=== PATIENT | female | born 2000 | race Caucasian/White ===

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

== ENCOUNTER 2018-06-27 14:26 | Emergency (ER) | payer MEDICAID ==
[2018-06-27 14:55] VITALS: BP 118/67
--- NOTE | 2018-06-27 15:19 | EDM.PDOC ---
ED HPI GENERAL MEDICAL PROBLEM - General Chief Complaint: Gastrointestinal Problem Stated Complaint: FOOD POISONING Time Seen by Provider: 06/27/18 15:06 Source of Information: Reports: Patient History Limitations: Reports: No Limitations - History of Present Illness INITIAL COMMENTS - FREE TEXT/NARRATIVE: This lady thinks maybe she got some food poisoning. She ate some pizza at about 1 PM today and within an hour or so she felt nauseated and had some diarrhea. She has not vomited but feels like she might. She denies abdominal pain. Is no fever no body aches - Related Data Allergies Allergy/AdvReac Type Severity Reaction Status Date / Time Penicillins Allergy Hives Verified 06/27/18 14:42 Home Meds: Home Meds Lurasidone HCl [Latuda] 40 mg PO DAILY 12/24/17 [History] traZODone HCl [Trazodone HCl] 50 mg PO BEDTIME 12/24/17 [History] Past Medical History HEENT History: Reports: None Neurological History: Reports: Concussion Psychiatric History: Reports: Anxiety, Depression, Other (See Below) Other Psychiatric History: manic depressive - Infectious Disease History Infectious Disease History: Reports: Chicken Pox - Past Surgical History Head Surgeries/Procedures: Reports: None HEENT Surgical History: Reports: Myringotomy w Tube(s) Neurological Surgical History: Reports: None Dermatological Surgical History: Reports: None Social & Family History - Tobacco Use Smoking Status *Q: Current Every Day Smoker Years of Tobacco use: 3 Packs/Tins Daily: 0.5 Used Tobacco, but Quit: No Second Hand Smoke Exposure: Yes - Caffeine Use Caffeine Use: Reports: Coffee, Soda - Recreational Drug Use Recreational Drug Use: No ED ROS GENERAL - Review of Systems Review Of Systems: See Below Constitutional: Reports: No Symptoms HEENT: Reports: No Symptoms Respiratory: Reports: No Symptoms Cardiovascular: Reports: No Symptoms Endocrine: Reports: No Symptoms GI/Abdominal: Reports: Diarrhea, Nausea : Reports: No Symptoms ED EXAM, GI/ABD - Physical Exam Exam: See Below Exam Limited By: No Limitations General Appearance: Alert, No Apparent Distress, Obese Eyes: Bilateral: Normal Appearance Throat/Mouth: Normal Inspection Head: Atraumatic Neck: Normal Inspection Respiratory/Chest: No Respiratory Distress Cardiovascular: Regular Rate, Rhythm GI/Abdominal Exam: Normal Bowel Sounds, Soft, Non-Tender Course - Vital Signs Last Recorded V/S: Last Vital Signs Temp 35.4 C 06/27/18 14:44 Pulse 75 06/27/18 14:44 Resp 13 06/27/18 14:44 BP 118/67 06/27/18 14:44 Pulse Ox 94 L 06/27/18 14:44 Departure - Departure Time of Disposition: 15:17 Disposition: Home, Self-Care 01 Condition: Fair Clinical Impression: Food poisoning - Discharge Information Referrals: PCP,None [Primary Care Provider] - Additional Instructions: If needed for nausea use Zofran (ondansetron) 4 mg under your tongue every 6-8 hours. If you continue to have diarrhea you can try some Imodium AD which is available [id number]. Follow package instructions. I recommend a clear liquid diet for the rest of the day. He should be back to normal tomorrow
== END 2018-06-27 15:23 | disposition home or self-care (01) ==
LOC: JP.ED 14:26
DX: T62.8X1A Toxic effect of other specified noxious substances eaten as food, accidental (unintentional), initial encounter (principal); K52.1 Toxic gastroenteritis and colitis; F17.210 Nicotine dependence, cigarettes, uncomplicated; Z88.0 Allergy status to penicillin; Z79.899 Other long term (current) drug therapy
CPT/HCPCS: 99282

== ENCOUNTER 2019-04-16 21:12 | Inpatient (IN) | payer MEDICAID ==
[2019-04-16] MEDS ORDERED: Sodium Chloride 0.9% 10 ML Syringe FLUSH PRN ×2 (22:12→23:32)
[2019-04-16] MEDS: Lactated Ringers 1,000 ML IV SCH (22:28)
[2019-04-16] MEDS ORDERED: Ondansetron 4 MG/2 ML SDV IV PRN (23:32)
[2019-04-17] MEDS ORDERED: Lactated Ringers 1,000 ML IV ONE (00:08)
[2019-04-17] MEDS ORDERED: Sodium Chloride 0.9% 10 ML Syringe FLUSH PRN (00:08)
[2019-04-17] MEDS ORDERED: Naloxone 0.4 MG/ML SDV IVPUSH PRN (00:08)
[2019-04-17] MEDS ORDERED: ePHEDrine 50 MG/ML SDV IVPUSH PRN ×2 (00:08)
[2019-04-17] MEDS ORDERED: diphenhydrAMINE 50 MG/ML SDV IVPUSH PRN ×2 (00:08)
[2019-04-17] MEDS ORDERED: Ropivacaine 200 MG in Premix Bag 1 BAG EPIDUR SCH (00:15)
--- NOTE | 2019-04-17 00:18 | PCM.LDHP ---
L&D History of Present Illness - General Date of Service: 04/16/19 Admit Problem/Dx: Patient Status Order with Admit Dx/Problem 04/16/19 21:17 Admission Status [Patient Status] [ADT] Routine 04/16/19 23:33 Patient Status [ADT] Routine Admission Diagnosis/Problem Admission Diagnosis/Problem - History of Present Illness Improves with: Reports: None Worsens with: Reports: None Associated Symptoms: Reports: N - Related Data Allergies/Adverse Reactions: Allergies Allergy/AdvReac Type Severity Reaction Status Date / Time Penicillins Allergy Hives Verified 06/27/18 14:42 Home Medications: Home Meds Ondansetron [Zofran ODT] 4 mg SL Q6HR PRN 04/16/19 [History] Pnv No.95/Ferrous Fum/Folic AC [ Vitamin Tablet] 1 tab PO DAILY [History] Past Medical History HEENT History: Reports: None [employer]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 History: Neurological History: Reports: Concussion Psychiatric History: Reports: Anxiety, Depression, Other (See Below) Other Psychiatric History: manic depressive: not on medications Do You Give Correction Boluses or Sliding Scale: No - Infectious Disease History Infectious Disease History: Reports: Chicken Pox - Past Surgical History Head Surgeries/Procedures: Reports: None HEENT Surgical History: Reports: Myringotomy w Tube(s) Neurological Surgical History: Reports: None Dermatological Surgical History: Reports: None Social & Family History - Family History Family Medical History: Noncontributory - Tobacco Use Smoking Status *Q: Current Every Day Smoker Years of Tobacco use: 5 Packs/Tins Daily: 0.5 - Caffeine Use Caffeine Use: Reports: Soda - Recreational Drug Use Recreational Drug Use: No H&P Review of Systems - Review of Systems: Review Of Systems: See Below General: Reports: No Symptoms HEENT: Reports: Headaches Pulmonary: Reports: No Symptoms Cardiovascular: Reports: No Symptoms Gastrointestinal: Reports: Abdominal Pain, Anorexia, Nausea, Vomiting Genitourinary: Reports: No Symptoms Musculoskeletal: Reports: No Symptoms Skin: Reports: No Symptoms Psychiatric: Reports: No Symptoms Neurological: Reports: Headache Hematologic/Lymphatic: Reports: No Symptoms Immunologic: Reports: No Symptoms L&D Exam - Exam Exam: See Below - Vital Signs Vital Signs: Last Vital Signs Temp 36.6 C 04/16/19 21:20 Pulse 112 H 04/16/19 21:20 Resp 20 04/16/19 21:20 BP 153/81 H 04/16/19 21:20 Pulse Ox 97 04/16/19 21:20 Weight: 94.347 kg - OB Specific Contraction Duration (sec): 50-70 Contraction Frequency (min): 2-3 Contraction Intensity: Mild to Moderate Movement: Active Heart Tones: Present Heart Rate (FHR) Variability: Moderate (6-25 bmp) Presentation: Vertex - Figueroa Score Figueroa Score Cervix Position: Anterior Figueroa Score Consistency: Soft Figueroa Score Effacement: >80% Figueroa Score Dilation: 1-2 cm Figueroa Score Infant's Station: -1 ,0 Figueroa Score Total: 10 - Exam General: Alert, Oriented, Cooperative HEENT: PERRLA, Conjunctiva Clear, EACs Clear, EOMI, Hearing Intact, Mucosa Moist & [place], Nares Patent, Normal Nasal Septum, Posterior Pharynx Clear, Pupils Equal, Pupils Reactive, TMs Clear Neck: Supple, Trachea Midline Lungs: Clear to Auscultation, Normal Respiratory Effort Cardiovascular: Regular Rate, Regular Rhythm GI/Abdominal Exam: Normal Bowel Sounds, Soft, Non-Tender, No Organomegaly, No Distention, No Abnormal Bruit, No Mass, Pelvis Stable Rectal Exam: Normal Exam, Normal Rectal Tone Genitourinary: Normal external exam, Normal bimanual exam, Normal speculum exam , Cervical dilitation, Vaginal discharge Back Exam: Normal Inspection, Full Range of Motion Extremities: Normal Inspection, Normal Range of Motion, Non-Tender, No Pedal Edema, Normal Capillary Refill, Pedal Edema Skin: Warm, Dry, Intact Neurological: Cranial Nerves Intact, Hyperreflexia DTR: 2+: Patella (R), 3+: Patella (L) Psychiatric: Alert, Normal Affect, Normal Mood, Anxious - Patient Data Lab Results Last 24 hrs: Laboratory Results - last 24 hr 04/16/19 04/16/19 04/16/19 Range/Units 21:47 21:47 22:25 WBC 12.7 H (4.5-11.0) K/uL RBC 4.09 (3.30-5.50) M/uL Hgb 11.0 L D (12.0-15.0) g/dL Hct 35.2 L (36.0-48.0) % MCV 86 (80-98) fL MCH 27 (27-31) pg MCHC 31 L (32-36) % Plt Count 283 (150-400) K/uL Neut % (Auto) 85 H (36-66) % Lymph % (Auto) 8 L (24-44) % Simpson % (Auto) 6 (2-6) % Eos % (Auto) 0 L (2-4) % Baso % (Auto) 0 (0-1) % Sodium (140-148) mmol/L Potassium (3.6-5.2) mmol/L Chloride (100-108) mmol/L Carbon Dioxide (21-32) mmol/L Anion Gap (5.0-14.0) mmol/L BUN (7-18) mg/dL Creatinine (0.6-1.0) mg/dL Est Cr Clr Drug Dosing Estimated GFR (MDRD) (>60) Glucose (74-106) mg/dL Calcium (8.5-10.1) mg/dL Total Bilirubin (0.2-1.0) mg/dL AST (15-37) U/L ALT (12-78) U/L Alkaline Phosphatase (46-116) U/L Lactate Dehydrogenase (82-234) U/L Total Protein (6.4-8.2) g/dL Albumin (3.4-5.0) g/dL Globulin (2.3-3.5) g/dL Albumin/Globulin Ratio (1.2-2.2) Urine Color [place] A (YELLOW) Urine Appearance Slightly cloudy A (CLEAR) Urine pH 7.0 (5.0-8.0) Ur Specific [place] 1.025 (1.008-1.030) Urine Protein 30 H (NEGATIVE) mg/dL Urine Glucose (UA) Negative (NEGATIVE) mg/dL Urine Ketones 40 H (NEGATIVE) mg/dL Urine Occult Blood Negative (NEGATIVE) Urine Nitrite Negative (NEGATIVE) Urine Bilirubin Negative (NEGATIVE) Urine Urobilinogen 1.0 (0.2-1.0) EU/dL Ur Leukocyte Esterase Small H (NEGATIVE) Urine RBC 0-5 (0-5) Urine WBC 10-20 H (0-5) Ur Epithelial Cells Many Amorphous Sediment Few Urine Bacteria Not seen Urine Mucus Rare Ur Random Creatinine (20.0-370.0) mg/dL U Random Total Protein (6.0-11.9) mg/dL Protein/Creatinin Ratio (21.0-161.0) mg/g Urine Opiates Screen Negative (NEGATIVE) Ur Oxycodone Screen Negative (NEGATIVE) Urine Methadone Screen Negative (NEGATIVE) Ur Propoxyphene Screen Negative (NEGATIVE) Ur Barbiturates Screen Negative (NEGATIVE) Ur Tricyclics Screen Negative (NEGATIVE) Ur Phencyclidine Scrn Negative (NEGATIVE) Ur Amphetamine Screen Negative (NEGATIVE) U Methamphetamines Scrn Negative (NEGATIVE) Urine MDMA Screen Negative (NEGATIVE) U Benzodiazepines Scrn Negative (NEGATIVE) U Cocaine Metab Screen Negative (NEGATIVE) U Marijuana (THC) Screen Negative (NEGATIVE) 04/16/19 04/16/19 04/16/19 Range/Units 22:25 22:25 22:36 WBC (4.5-11.0) K/uL RBC (3.30-5.50) M/uL Hgb (12.0-15.0) g/dL Hct (36.0-48.0) % MCV (80-98) fL MCH (27-31) pg MCHC (32-36) % Plt Count (150-400) K/uL Neut % (Auto) (36-66) % Lymph % (Auto) (24-44) % Simpson % (Auto) (2-6) % Eos % (Auto) (2-4) % Baso % (Auto) (0-1) % Sodium 138 L (140-148) mmol/L Potassium 3.7 (3.6-5.2) mmol/L Chloride 104 (100-108) mmol/L Carbon Dioxide 22 (21-32) mmol/L Anion Gap 15.7 H (5.0-14.0) mmol/L BUN 5 L (7-18) mg/dL Creatinine 0.6 (0.6-1.0) mg/dL Est Cr Clr Drug Dosing TNP Estimated GFR (MDRD) > 60 (>60) Glucose 82 (74-106) mg/dL Calcium 8.4 L (8.5-10.1) mg/dL Total Bilirubin 0.3 (0.2-1.0) mg/dL AST 21 (15-37) U/L ALT 20 (12-78) U/L Alkaline Phosphatase 141 H (46-116) U/L Lactate Dehydrogenase 209 (82-234) U/L Total Protein 6.6 (6.4-8.2) g/dL Albumin 2.4 L (3.4-5.0) g/dL Globulin 4.2 H (2.3-3.5) g/dL Albumin/Globulin Ratio 0.6 L (1.2-2.2) Urine Color (YELLOW) Urine Appearance (CLEAR) Urine pH (5.0-8.0) Ur Specific [place] (1.008-1.030) Urine Protein (NEGATIVE) mg/dL Urine Glucose (UA) (NEGATIVE) mg/dL Urine Ketones (NEGATIVE) mg/dL Urine Occult Blood (NEGATIVE) Urine Nitrite (NEGATIVE) Urine Bilirubin (NEGATIVE) Urine Urobilinogen (0.2-1.0) EU/dL Ur Leukocyte Esterase (NEGATIVE) Urine RBC (0-5) Urine WBC (0-5) Ur Epithelial Cells Amorphous Sediment Urine Bacteria Urine Mucus Ur Random Creatinine 120.1 (20.0-370.0) mg/dL U Random Total Protein 41.4 H (6.0-11.9) mg/dL Protein/Creatinin Ratio 344.7 H (21.0-161.0) mg/g Urine Opiates Screen (NEGATIVE) Ur Oxycodone Screen (NEGATIVE) Urine Methadone Screen (NEGATIVE) Ur Propoxyphene Screen (NEGATIVE) Ur Barbiturates Screen (NEGATIVE) Ur Tricyclics Screen (NEGATIVE) Ur Phencyclidine Scrn (NEGATIVE) Ur Amphetamine Screen (NEGATIVE) U Methamphetamines Scrn (NEGATIVE) Urine MDMA Screen (NEGATIVE) U Benzodiazepines Scrn (NEGATIVE) U Cocaine Metab Screen (NEGATIVE) U Marijuana (THC) Screen (NEGATIVE) Result Diagrams: 04/16/19 22:25 04/16/19 22:25 - Problem List (1) GBS (group B streptococcus) infection SNOMED Code(s): 996666061 ICD Code: A49.1 - STREPTOCOCCAL INFECTION, UNSPECIFIED SITE Status: Acute Current Visit: Yes (2) Bacterial vaginosis SNOMED Code(s): 120613133 ICD Code: N76.0 - ACUTE VAGINITIS; B96.89 - OTH BACTERIAL AGENTS THE CAUSE OF DISEASES CLASSD [id number] Status: Acute Current Visit: Yes (3) Insufficient care in third trimester SNOMED Code(s): 8038063854667, 6169797697524 ICD Code: O09.33 - SUPRVSN OF PREG W INSUFFICIENT ANTENAT CARE, THIRD TRIMESTER Status: Acute Current Visit: Yes (4) Protein in urine SNOMED Code(s): 83120277 ICD Code: R80.9 - PROTEINURIA, UNSPECIFIED Status: Acute Current Visit: Yes Qualifiers: Trimester: third trimester (5) Pre-eclampsia in third trimester SNOMED Code(s): 858077689, 686837386 ICD Code: O14.93 - UNSPECIFIED PRE-ECLAMPSIA, THIRD TRIMESTER Status: Acute Current Visit: Yes (6) SNOMED Code(s): 66984872 ICD Code: Z34.90 - ENCNTR FOR SUPRVSN OF NORMAL , UNSP, UNSP TRIMESTER Status: Acute Current Visit: Yes Qualifiers: Weeks of gestation: 37 weeks Qualified Code(s): Z3A.37 - 37 weeks gestation of Problem List Initiated/Reviewed/Updated: Yes Orders Last 24hrs: Active Orders 24 hr Category Date Time Status Admission Status [Patient Status] [ADT] Routine ADT 04/16/19 21:17 Active Patient Status [ADT] Routine ADT 04/16/19 23:33 Active Ambulate [RC] PER UNIT ROUTINE Care 04/16/19 23:32 Active Communication Order [RC] ASDIRECTED Care 04/16/19 23:33 Active Communication Order [RC] ASDIRECTED Care 04/17/19 00:08 Ordered Communication Order [RC] ROUTINE Care 04/17/19 00:08 Ordered Communication Order [RC] ROUTINE Care 04/17/19 00:08 Ordered Communication Order [RC] ROUTINE Care 04/17/19 00:08 Ordered Heart Tones [RC] PER UNIT ROUTINE Care 04/16/19 23:33 Active Non Stress Test [RC] Click to Edit Care 04/16/19 23:33 Active Insert Urinary Catheter [OM.PC] ASDIRECTED Care 04/17/19 00:15 Ordered Local Anesthetic Infusion Pump [RC] ASDIRECTED Care 04/17/19 00:08 Ordered Notify Provider Vital Signs [RC] PRN Care 04/16/19 23:32 Active Notify Provider [RC] PRN Care 04/16/19 23:33 Active Oxygen Therapy [RC] ASDIRECTED Care 04/17/19 00:08 Ordered PCEA Epidural [RC] ASDIRECTED Care 04/17/19 00:08 Ordered PCEA Epidural [RC] ASDIRECTED Care 04/17/19 00:08 Ordered PCEA Epidural [RC] ASDIRECTED Care 04/17/19 00:09 Ordered Peripheral IV Care [RC] . DIRECTED Care 04/17/19 00:09 Ordered Pulse Oximetry [RC] ASDIRECTED Care 04/17/19 00:08 Ordered Up ad [place] [RC] ASDIRECTED Care 04/16/19 23:32 Active Urinary Catheter Assessment [RC] ASDIRECTED Care 04/17/19 00:09 Ordered VTE/DVT Education [RC] Click to Edit Care 04/16/19 23:37 Active Vital Signs [RC] PER UNIT ROUTINE Care 04/16/19 23:33 Active Vital Signs [RC] PER UNIT ROUTINE Care 04/17/19 00:08 Ordered BPP w NST [US] Routine Exams 04/16/19 23:39 Ordered Clindamycin Phosphate [Cleocin] 900 mg Med 04/17/19 00:00 Active Sodium Chloride 0.9% [Normal Saline] 100 ml IV Q8H Lactated Ringers [Ringers, Lactated] 1,000 ml Med 04/17/19 00:08 Ordered IV .BOLUS Lactated Ringers [Ringers, Lactated] 1,000 ml Med 04/16/19 22:15 Active IV ASDIRECTED Naloxone [Narcan] Med 04/17/19 00:08 Ordered 0.1 mg IVPUSH ASDIRECTED PRN Ondansetron [Zofran] Med 04/16/19 23:32 Active 4 mg IV Q4H PRN Ropivacaine [Naropin 0.2%] 200 mg Med 04/17/19 00:15 Ordered Premix Bag 1 bag EPIDUR ASDIRECTED Sodium Chloride 0.9% [Saline Flush] Med 04/16/19 22:12 Active 10 ml FLUSH ASDIRECTED PRN Sodium Chloride 0.9% [Saline Flush] Med 04/16/19 23:32 Active 10 ml FLUSH ASDIRECTED PRN Sodium Chloride 0.9% [Saline Flush] Med 04/17/19 00:08 Ordered 10 ml FLUSH ASDIRECTED PRN diphenhydrAMINE [Benadryl] Med 04/17/19 00:08 Ordered 25 mg IVPUSH Q6H PRN diphenhydrAMINE [Benadryl] Med 04/17/19 00:08 Ordered 50 mg IVPUSH Q6H PRN ePHEDrine [ePHEDrine sulfate] Med 04/17/19 00:08 Ordered 10 mg IVPUSH ASDIRECTED PRN ePHEDrine [ePHEDrine sulfate] Med 04/17/19 00:08 Ordered 10 mg IVPUSH ASDIRECTED PRN metroNIDAZOLE/Normal Saline [Flagyl 500 MG in NS 100 ML Med 04/17/19 00:15 Ordered ] 500 mg Premix Bag 1 bag IV Q8H DVT/VTE Prophylaxis Reflex [OM.PC] Routine Oth 04/16/19 23:32 Ordered Epidural Catheter Management [OM.PC] Routine Oth 04/17/19 00:08 Ordered Epidural Catheter Management [OM.PC] Urgent Oth 04/17/19 00:08 Ordered Peripheral IV Insertion Pediatric [OM.PC] Routine Oth 04/17/19 00:08 Ordered Saline Lock Insert [OM.PC] Routine Oth 04/16/19 22:12 Ordered Saline Lock Insert [OM.PC] Routine Oth 04/16/19 23:33 Ordered Resuscitation Status Routine Resus Stat 04/16/19 23:32 Ordered Medication Orders Diphenhydramine HCl (Benadryl) 25 mg IVPUSH Q6H PRN PRN Reason: Itching Diphenhydramine HCl (Benadryl) 50 mg IVPUSH Q6H PRN PRN Reason: Itching Ephedrine Sulfate (Ephedrine Sulfate) 10 mg IVPUSH ASDIRECTED PRN PRN Reason: Hypotension Ephedrine Sulfate (Ephedrine Sulfate) 10 mg IVPUSH ASDIRECTED PRN PRN Reason: Hypotension Lactated Ringer's (Ringers, Lactated) 1,000 mls @ 150 mls/hr IV ASDIRECTED JABARI Last Admin: 04/16/19 22:28 Dose: 150 mls/hr Clindamycin Phosphate 900 mg/ (Sodium Chloride) 106 mls @ 200 mls/hr IV Q8H JABARI Metronidazole 500 mg/ Premix 100 mls @ 100 mls/hr IV Q8H JABARI Lactated Ringer's (Ringers, Lactated) 1,000 mls @ 999 mls/hr IV .BOLUS ONE Stop: 04/17/19 01:08 Ropivacaine 200 mg/ Premix 100 mls @ 0 mls/hr EPIDUR ASDIRECTED JABARI Naloxone HCl (Narcan) 0.1 mg IVPUSH ASDIRECTED PRN PRN Reason: Oversedation Ondansetron HCl (Zofran) 4 mg IV Q4H PRN PRN Reason: Nausea/Vomiting Sodium Chloride (Saline Flush) 10 ml FLUSH ASDIRECTED PRN PRN Reason: Keep Vein Open Sodium Chloride (Saline Flush) 10 ml FLUSH ASDIRECTED PRN PRN Reason: Keep Vein Open Sodium Chloride (Saline Flush) 10 ml FLUSH ASDIRECTED PRN PRN Reason: Keep Vein Open Assessment/Plan Comment:: 04/16/2019 Patient came in tonight with abdominal pain, headache, back pain, vomiting, and nausea. On admission her BP was 150's over 90's, she was found to be danielle every 1-2.5 minutes, SVE-1/70/-1, She states she has had some care. She is a at 37 1/7 gestational weeks FHTs category one Insufficient care Preeclampsia with proteinuria and symptoms Bacterial vaginosis Unknown GBS status Plan- Will get CBC, CMP, LDH, Protein/creatinine ratior Will monitor labor Will monitor FHTs Will plan if preeclampsia to augment labor Plan and anticipate a vaginal
[2019-04-17] MEDS: Clindamycin Phosphate 900 MG in Sodium Chloride 0.9% 100 ML IV SCH ×4 (00:22→23:56)
--- NOTE | 2019-04-17 00:24 | PCM.PNLD ---
Labor Progress Note - VS & Meds Vital Signs: Last Vital Signs Temp 36.6 C 04/16/19 21:20 Pulse 112 H 04/16/19 21:20 Resp 20 04/16/19 21:20 BP 153/81 H 04/16/19 21:20 Pulse Ox 97 04/16/19 21:20 Active Medications: Current Medications Diphenhydramine HCl (Benadryl) 25 mg IVPUSH Q6H PRN PRN Reason: Itching Diphenhydramine HCl (Benadryl) 50 mg IVPUSH Q6H PRN PRN Reason: Itching Ephedrine Sulfate (Ephedrine Sulfate) 10 mg IVPUSH ASDIRECTED PRN PRN Reason: Hypotension Ephedrine Sulfate (Ephedrine Sulfate) 10 mg IVPUSH ASDIRECTED PRN PRN Reason: Hypotension Lactated Ringer's (Ringers, Lactated) 1,000 mls @ 150 mls/hr IV ASDIRECTED JABARI Last Admin: 04/16/19 22:28 Dose: 150 mls/hr Clindamycin Phosphate 900 mg/ (Sodium Chloride) 106 mls @ 200 mls/hr IV Q8H JABARI Metronidazole 500 mg/ Premix 100 mls @ 100 mls/hr IV Q8H JABARI Lactated Ringer's (Ringers, Lactated) 1,000 mls @ 999 mls/hr IV ONETIME ONE Stop: 04/17/19 01:08 Ropivacaine 200 mg/ Premix 100 mls @ 0 mls/hr EPIDUR ASDIRECTED JABARI Naloxone HCl (Narcan) 0.1 mg IVPUSH ASDIRECTED PRN PRN Reason: Oversedation Ondansetron HCl (Zofran) 4 mg IV Q4H PRN PRN Reason: Nausea/Vomiting Sodium Chloride (Saline Flush) 10 ml FLUSH ASDIRECTED PRN PRN Reason: Keep Vein Open Discontinued Medications Sodium Chloride (Saline Flush) 10 ml FLUSH ASDIRECTED PRN PRN Reason: Keep Vein Open Sodium Chloride (Saline Flush) 10 ml FLUSH ASDIRECTED PRN PRN Reason: Keep Vein Open - Uterine Contractions Uterine Monitoring Mode: External [place] Contraction Frequency (min): 2-3 Contraction Duration (sec): 50-70 Contraction Intensity: Mild to Moderate Uterine Resting Tone: Soft - Monitoring Heart Rate (FHR) Variability: Moderate (6-25 bmp) Accelerations: Present, 15x15 Decelerations: None Strip Review: Category I - Vaginal Exam Dilation (cm): 2-3 Effacement (Percent): 90 Station: -1 Cervical Position: Anterior Sterile Vaginal Exam Performed By: Ayala Gómez Vaginal Exam Comment: stated she could feel baby's fingers - Labor Progress (Free Text) Labor Progress: 04/17/2019 Patient is still danielle regularly-every 1.5-2.5 minutes and she states they are stronger SVE-2-3/90/-1 Still can feel compound presentation FHTs category one Hgb-11.0, platelet-283, LDH-209, Protein/Creatinine ratio-344.7 Hyperreflexia noted, 3+patellar Plan- Will continue to monitor patient closely Will monitor for active labor Will monitor FHTs Will get a BPP and cord doppler Will plan to augment with Pitocin if no change in dilation Will treat unknown GBS Will treat bacterial vaginosis Plan and anticipate a vaginal delivery
[2019-04-17] MEDS ORDERED: metroNIDAZOLE/Normal Saline 500 MG in Premix Bag 1 BAG IV SCH (00:30)
--- NOTE | 2019-04-17 01:22 | CRLUS ---
INDICATION: Preeclampsia TECHNIQUE: Ultrasound OB pelvis transabdominal. Real-time melgar-scale imaging of the fetus was performed with color Doppler and spectral Doppler analysis of the umbilical artery without stress testing. COMPARISON: None FINDINGS: Clinical age of 37 weeks 2 days (PATIENCE 05/06/2019). Sonographic imaging demonstrates a single living intrauterine gestation. Fetus demonstrates a regular cardiac rate of 150 beats per minute. Fetus has a cephalic orientation. The placenta lies anterior. Amniotic fluid volume appears normal with an LUISA of 10.7 cm. breathing movements, motion, and tone were all observed. Umbilical cord S/D ratio of 2.68 IMPRESSION: 1. Single live intrauterine gestation with a clinical age of 37 weeks 2 days in vertex presentation. 2. Biophysical profile score of 8 out of 8. 3. Normal amniotic fluid volume. 4. Normal umbilical cord Doppler. Dictated by Yuri Hilario MD @ Apr 17 2019 1:16AM Signed by Dr. Yuri Hilario @ Apr 17 2019 1:19AM
[2019-04-17] MEDS: Lactated Ringers 1,000 ML IV SCH ×3 (06:34→23:35)
--- NOTE | 2019-04-17 07:14 | PCM.PNLD ---
Labor Progress Note - VS & Meds Vital Signs: Last Vital Signs Temp 36.6 C 04/17/19 03:00 Pulse 102 H 04/17/19 05:02 Resp 16 04/17/19 05:02 BP 105/61 04/17/19 05:02 Pulse Ox 96 04/17/19 05:02 Active Medications: Current Medications Diphenhydramine HCl (Benadryl) 25 mg IVPUSH Q6H PRN PRN Reason: Itching Diphenhydramine HCl (Benadryl) 50 mg IVPUSH Q6H PRN PRN Reason: Itching Ephedrine Sulfate (Ephedrine Sulfate) 10 mg IVPUSH ASDIRECTED PRN PRN Reason: Hypotension Lactated Ringer's (Ringers, Lactated) 1,000 mls @ 150 mls/hr IV ASDIRECTED [facility] Last Admin: 04/17/19 06:34 Dose: 150 mls/hr Clindamycin Phosphate 900 mg/ (Sodium Chloride) 106 mls @ 200 mls/hr IV Q8H [facility] Last Admin: 04/17/19 00:22 Dose: 200 mls/hr Metronidazole 500 mg/ Premix 100 mls @ 100 mls/hr IV Q8H [facility] Last Admin: 04/17/19 01:13 Dose: 100 mls/hr Ropivacaine 200 mg/ Premix 100 mls @ 0 mls/hr EPIDUR ASDIRECTED [facility] Oxytocin/Sodium Chloride (Pitocin In Ns 20 Units/1,000 Ml) 20 unit in 1,000 mls @ 6 mls/hr IV TITRATE [facility]; Protocol Last Titration: 04/17/19 06:42 Dose: 0 mls/hr Azithromycin 1,000 mg/ Sodium (Chloride) 500 mls @ 500 mls/hr IV ONETIME ONE Stop: 04/17/19 07:56 Lactobacillus Rhamnosus (Culturelle) 1 cap PO BID [facility] Naloxone HCl (Narcan) 0.1 mg IVPUSH ASDIRECTED PRN PRN Reason: Oversedation Ondansetron HCl (Zofran) 4 mg IV Q4H PRN PRN Reason: Nausea/Vomiting Last Admin: 04/17/19 01:26 Dose: 4 mg Sodium Chloride (Saline Flush) 10 ml FLUSH ASDIRECTED PRN PRN Reason: Keep Vein Open Discontinued Medications Ephedrine Sulfate (Ephedrine Sulfate) 10 mg IVPUSH ASDIRECTED PRN PRN Reason: Hypotension Lactated Ringer's (Ringers, Lactated) 1,000 mls @ 999 mls/hr IV ONETIME ONE Stop: 04/17/19 01:08 Sodium Chloride (Saline Flush) 10 ml FLUSH ASDIRECTED PRN PRN Reason: Keep Vein Open Sodium Chloride (Saline Flush) 10 ml FLUSH ASDIRECTED PRN PRN Reason: Keep Vein Open - Uterine Contractions Uterine Monitoring Mode: External [place] Contraction Frequency (min): occas Contraction Duration (sec): 50-70 Contraction Intensity: Mild Uterine Resting Tone: Soft - Monitoring Heart Rate (FHR) Variability: Moderate (6-25 bmp) Accelerations: Present, 15x15 Decelerations: None Strip Review: Category I - Vaginal Exam Dilation (cm): 2-3 Effacement (Percent): 90 Station: -1 Cervical Position: Anterior Sterile Vaginal Exam Performed By: Ayala Gómez Vaginal Exam Comment: no change and can no longer feel fingers on exam - Labor Progress (Free Text) Labor Progress: 04/17/2019 Patient is feeling much better. SVE is unchanged, FHTs category one. Discussed all options with mother and decision made to stop Pitocin and do 24 hour urine and repeat all testing tomorrow am if no delivery by that time. Plan- Will continue to monitor closely Will continue to monitor for labor Will continue to monitor FHTs Will continue all IV antibiotics as prescribed Will continue IV fluids as prescribed Can eat a regular diet Can shower and be up ad jayde Will complete a 24 hour urine Will repeat BPP and all lab work tomorrow am If patient proceeds with labor will plan and anticipate a vaginal delivery If patient remains stable and labs improve will have her seen in clinic this week, repeat labs, NST and BPP again.
[2019-04-17] MEDS: Lactobacillus Rhamnosus GG (Probiotic) Cap PO SCH ×2 (07:59→20:38)
[2019-04-17] MEDS ORDERED: Azithromycin 250 MG Tab PO ONE (09:00)
[2019-04-17] MEDS: metroNIDAZOLE/Normal Saline 500 MG in Premix Bag 1 BAG IV SCH ×2 (09:05→16:00)
[2019-04-17] MEDS ORDERED: Azithromycin 1,000 MG in Sodium Chloride 0.9% 500 ML IV ONE (10:00)
[2019-04-18] MEDS: metroNIDAZOLE/Normal Saline 500 MG in Premix Bag 1 BAG IV SCH ×3 (00:41→16:39)
[2019-04-18] MEDS: Clindamycin Phosphate 900 MG in Sodium Chloride 0.9% 100 ML IV SCH ×2 (07:46→16:01)
--- NOTE | 2019-04-18 08:24 | CRLUS ---
HISTORY: Pre-eclampsia. LMP 07/30/2018 at 37 weeks 3 days gestation. EDC of 05/06/2019. FINDINGS: breathing movements 2/2. Gross body movements 2/2. tone 2/2. Amniotic fluid pocket 2/2. Total biophysical profile score of 8/8. Amniotic fluid volume of 14.7 cm with deepest pocket measuring 4.8 cm. heart rate of 134 beats per minute. Dictated by Verónica Clark MD @ Apr 18 2019 8:21AM Signed by Dr. Verónica Clark @ Apr 18 2019 8:21AM
[2019-04-18] MEDS: Lactobacillus Rhamnosus GG (Probiotic) Cap PO SCH (08:34)
[2019-04-18] MEDS ORDERED: Misoprostol 50 MCG (1/2 of 100 MCG) Tab VAG ONE ×2 (08:45→13:30)
[2019-04-18] MEDS: Magnesium Sulfate/Water 40 GM/1,000 ML BAG IV SCH (09:30)
--- NOTE | 2019-04-18 10:08 | PCM.PNLD ---
Labor Progress Note - VS & Meds Vital Signs: Last Vital Signs Temp 36.8 C 04/18/19 08:00 Pulse 86 04/18/19 08:00 Resp 16 04/18/19 08:00 BP 123/69 04/18/19 08:00 Pulse Ox 96 04/18/19 08:00 Active Medications: Current Medications Diphenhydramine HCl (Benadryl) 25 mg IVPUSH Q6H PRN PRN Reason: Itching Diphenhydramine HCl (Benadryl) 50 mg IVPUSH Q6H PRN PRN Reason: Itching Ephedrine Sulfate (Ephedrine Sulfate) 10 mg IVPUSH ASDIRECTED PRN PRN Reason: Hypotension Lactated Ringer's (Ringers, Lactated) 1,000 mls @ 150 mls/hr IV ASDIRECTED [facility] Last Admin: 04/17/19 23:35 Dose: 150 mls/hr Clindamycin Phosphate 900 mg/ (Sodium Chloride) 106 mls @ 200 mls/hr IV Q8H [facility] Last Admin: 04/18/19 07:46 Dose: 200 mls/hr Ropivacaine 200 mg/ Premix 100 mls @ 0 mls/hr EPIDUR ASDIRECTED [facility] Oxytocin/Sodium Chloride (Pitocin In Ns 20 Units/1,000 Ml) 20 unit in 1,000 mls @ 6 mls/hr IV TITRATE [facility]; Protocol Last Titration: 04/17/19 06:42 Dose: 0 mls/hr Metronidazole 500 mg/ Premix 100 mls @ 100 mls/hr IV Q8H [facility] Last Admin: 04/18/19 08:34 Dose: 100 mls/hr Magnesium Sulfate (Magnesium Sulfate In Water Premix) 40 gm in 1,000 mls @ 50 mls/hr IV ASDIRECTED [facility] Lactobacillus Rhamnosus (Culturelle) 1 cap PO BID [facility] Last Admin: 04/18/19 08:34 Dose: 1 cap Naloxone HCl (Narcan) 0.1 mg IVPUSH ASDIRECTED PRN PRN Reason: Oversedation Ondansetron HCl (Zofran) 4 mg IV Q4H PRN PRN Reason: Nausea/Vomiting Last Admin: 04/17/19 01:26 Dose: 4 mg Sodium Chloride (Saline Flush) 10 ml FLUSH ASDIRECTED PRN PRN Reason: Keep Vein Open Discontinued Medications Azithromycin (Zithromax) 1,000 mg PO ONETIME ONE Stop: 04/17/19 09:01 Last Admin: 04/17/19 08:14 Dose: 1,000 mg Ephedrine Sulfate (Ephedrine Sulfate) 10 mg IVPUSH ASDIRECTED PRN PRN Reason: Hypotension Metronidazole 500 mg/ Premix 100 mls @ 100 mls/hr IV Q8H [facility] Last Admin: 04/17/19 01:13 Dose: 100 mls/hr Lactated Ringer's (Ringers, Lactated) 1,000 mls @ 999 mls/hr IV ONETIME ONE Stop: 04/17/19 01:08 Last Admin: 04/17/19 13:50 Dose: Not Given Misoprostol (Cytotec) 50 mcg VAG ONETIME ONE Stop: 04/18/19 08:46 Sodium Chloride (Saline Flush) 10 ml FLUSH ASDIRECTED PRN PRN Reason: Keep Vein Open Sodium Chloride (Saline Flush) 10 ml FLUSH ASDIRECTED PRN PRN Reason: Keep Vein Open - Uterine Contractions Uterine Monitoring Mode: External [place] Contraction Frequency (min): x2 Contraction Duration (sec): 150-180 Contraction Intensity: Mild Uterine Resting Tone: Soft - Monitoring Heart Rate (FHR) Variability: Moderate (6-25 bmp) Accelerations: Present, 15x15 Decelerations: None Strip Review: Category I - Vaginal Exam Dilation (cm): 2 Effacement (Percent): 90 Station: -1 Cervical Position: Midposition Sterile Vaginal Exam Performed By: Ayala Gómez - Labor Progress (Free Text) Labor Progress: 04/18/2019 Patient has been feeling better Labs today-LDH went from 209 to 229 Protein creatinine is now 396.07/1249.5 which is an increase from Friday's spot urine SVE unchanged Still slightly hyperreflexic Has 2+ pedal edema also States headache is better Do to changes in lab will move forward with induction of labor for preeclampsia FHTs category one Plan- Will place one vaginal cytotec now Will start Magnesium per protocol Will continue antibiotics Will continue IV fluids at 100ml/hour Will repeat labs in am Pain management per patient request Will plan and anticipate a vaginal delivery
[2019-04-18] MEDS ORDERED: Calcium Gluconate 1 GM in Sodium Chloride 0.9% 100 ML IV PRN (12:08)
--- NOTE | 2019-04-18 14:31 | PCM.PNLD ---
Labor Progress Note - VS & Meds Vital Signs: Last Vital Signs Temp 36.8 C 04/18/19 08:00 Pulse 87 04/18/19 10:35 Resp 16 04/18/19 12:00 BP 122/78 04/18/19 13:00 Pulse Ox 96 04/18/19 10:35 Active Medications: Current Medications Diphenhydramine HCl (Benadryl) 25 mg IVPUSH Q6H PRN PRN Reason: Itching Diphenhydramine HCl (Benadryl) 50 mg IVPUSH Q6H PRN PRN Reason: Itching Ephedrine Sulfate (Ephedrine Sulfate) 10 mg IVPUSH ASDIRECTED PRN PRN Reason: Hypotension Lactated Ringer's (Ringers, Lactated) 1,000 mls @ 50 mls/hr IV ASDIRECTED [facility] Last Admin: 04/17/19 23:35 Dose: 150 mls/hr Clindamycin Phosphate 900 mg/ (Sodium Chloride) 106 mls @ 200 mls/hr IV Q8H [facility] Last Admin: 04/18/19 07:46 Dose: 200 mls/hr Ropivacaine 200 mg/ Premix 100 mls @ 0 mls/hr EPIDUR ASDIRECTED [facility] Oxytocin/Sodium Chloride (Pitocin In Ns 20 Units/1,000 Ml) 20 unit in 1,000 mls @ 6 mls/hr IV TITRATE [facility]; Protocol Last Titration: 04/17/19 06:42 Dose: 0 mls/hr Metronidazole 500 mg/ Premix 100 mls @ 100 mls/hr IV Q8H [facility] Last Admin: 04/18/19 08:34 Dose: 100 mls/hr Magnesium Sulfate (Magnesium Sulfate In Water Premix) 40 gm in 1,000 mls @ 50 mls/hr IV ASDIRECTED [facility] Last Admin: 04/18/19 09:30 Dose: 2 gm/hr, 50 mls/hr Calcium Gluconate 1 gm/ Sodium (Chloride) 110 mls @ 100 mls/hr IV ONETIME PRN PRN Reason: mag toxicity Lactobacillus Rhamnosus (Culturelle) 1 cap PO BID [facility] Last Admin: 04/18/19 08:34 Dose: 1 cap Naloxone HCl (Narcan) 0.1 mg IVPUSH ASDIRECTED PRN PRN Reason: Oversedation Ondansetron HCl (Zofran) 4 mg IV Q4H PRN PRN Reason: Nausea/Vomiting Last Admin: 04/17/19 01:26 Dose: 4 mg Sodium Chloride (Saline Flush) 10 ml FLUSH ASDIRECTED PRN PRN Reason: Keep Vein Open Discontinued Medications Azithromycin (Zithromax) 1,000 mg PO ONETIME ONE Stop: 04/17/19 09:01 Last Admin: 04/17/19 08:14 Dose: 1,000 mg Ephedrine Sulfate (Ephedrine Sulfate) 10 mg IVPUSH ASDIRECTED PRN PRN Reason: Hypotension Metronidazole 500 mg/ Premix 100 mls @ 100 mls/hr IV Q8H [facility] Last Admin: 04/17/19 01:13 Dose: 100 mls/hr Lactated Ringer's (Ringers, Lactated) 1,000 mls @ 999 mls/hr IV ONETIME ONE Stop: 04/17/19 01:08 Last Admin: 04/17/19 13:50 Dose: Not Given Misoprostol (Cytotec) 50 mcg VAG ONETIME ONE Stop: 04/18/19 08:46 Last Admin: 04/18/19 09:45 Dose: 50 mcg Misoprostol (Cytotec) 50 mcg VAG ONETIME ONE Stop: 04/18/19 13:31 Sodium Chloride (Saline Flush) 10 ml FLUSH ASDIRECTED PRN PRN Reason: Keep Vein Open Sodium Chloride (Saline Flush) 10 ml FLUSH ASDIRECTED PRN PRN Reason: Keep Vein Open - Uterine Contractions Uterine Monitoring Mode: External [place] Contraction Frequency (min): 1-5 Contraction Duration (sec): 50-60 Contraction Intensity: Mild Uterine Resting Tone: Soft - Monitoring Heart Rate (FHR) Variability: Moderate (6-25 bmp) Accelerations: Present, 15x15 Decelerations: None Strip Review: Category I - Vaginal Exam Dilation (cm): 2-3 Effacement (Percent): 90 Station: -1 Cervical Position: Midposition Sterile Vaginal Exam Performed By: Ayala Gómez - Labor Progress (Free Text) Labor Progress: 04/18/2019 Patient has no change truly in SVE Vagina very tender and swollen SVE-2-3/90/-1 Cytotec 50mcg placed vaginally again FHTs category one Plan of care to place this second cytotec agreed by patient whom verbalized understanding of plan of care Preclampsia-Magnesium still going at 2grams per hour Plan- Continue to monitor for labor Continue to monitor FHTs Continue antibiotics as prescribed Continue Magnesium per protocol Will reevaluate around [id number] another cytotec or start pitocin if no change Pain management per patient request Plan and anticipate a vaginal delivery
[2019-04-18] MEDS ORDERED: Acetaminophen 500 MG Tab PO PRN (17:12)
--- NOTE | 2019-04-18 18:51 | PCM.PNLD ---
Labor Progress Note - VS & Meds Vital Signs: Last Vital Signs Temp 36.8 C 04/18/19 08:00 Pulse 87 04/18/19 18:00 Resp 18 04/18/19 18:00 BP 137/83 04/18/19 18:00 Pulse Ox 97 04/18/19 18:00 Active Medications: Current Medications Acetaminophen (Tylenol Extra Strength) 1,000 mg PO Q6H PRN PRN Reason: Pain Last Admin: 04/18/19 17:52 Dose: 1,000 mg Diphenhydramine HCl (Benadryl) 25 mg IVPUSH Q6H PRN PRN Reason: Itching Diphenhydramine HCl (Benadryl) 50 mg IVPUSH Q6H PRN PRN Reason: Itching Ephedrine Sulfate (Ephedrine Sulfate) 10 mg IVPUSH ASDIRECTED PRN PRN Reason: Hypotension Lactated Ringer's (Ringers, Lactated) 1,000 mls @ 50 mls/hr IV ASDIRECTED [facility] Last Admin: 04/17/19 23:35 Dose: 150 mls/hr Clindamycin Phosphate 900 mg/ (Sodium Chloride) 106 mls @ 200 mls/hr IV Q8H [facility] Last Admin: 04/18/19 16:01 Dose: 200 mls/hr Ropivacaine 200 mg/ Premix 100 mls @ 0 mls/hr EPIDUR ASDIRECTED [facility] Oxytocin/Sodium Chloride (Pitocin In Ns 20 Units/1,000 Ml) 20 unit in 1,000 mls @ 6 mls/hr IV TITRATE [facility]; Protocol Last Admin: 04/18/19 18:34 Dose: 2 munits/min, 6 mls/hr Metronidazole 500 mg/ Premix 100 mls @ 100 mls/hr IV Q8H [facility] Last Admin: 04/18/19 16:39 Dose: 100 mls/hr Magnesium Sulfate (Magnesium Sulfate In Water Premix) 40 gm in 1,000 mls @ 50 mls/hr IV ASDIRECTED [facility] Last Admin: 04/18/19 09:30 Dose: 2 gm/hr, 50 mls/hr Calcium Gluconate 1 gm/ Sodium (Chloride) 110 mls @ 100 mls/hr IV ONETIME PRN PRN Reason: mag toxicity Lactobacillus Rhamnosus (Culturelle) 1 cap PO BID [facility] Last Admin: 04/18/19 08:34 Dose: 1 cap Naloxone HCl (Narcan) 0.1 mg IVPUSH ASDIRECTED PRN PRN Reason: Oversedation Ondansetron HCl (Zofran) 4 mg IV Q4H PRN PRN Reason: Nausea/Vomiting Last Admin: 04/17/19 01:26 Dose: 4 mg Sodium Chloride (Saline Flush) 10 ml FLUSH ASDIRECTED PRN PRN Reason: Keep Vein Open Discontinued Medications Azithromycin (Zithromax) 1,000 mg PO ONETIME ONE Stop: 04/17/19 09:01 Last Admin: 04/17/19 08:14 Dose: 1,000 mg Ephedrine Sulfate (Ephedrine Sulfate) 10 mg IVPUSH ASDIRECTED PRN PRN Reason: Hypotension Metronidazole 500 mg/ Premix 100 mls @ 100 mls/hr IV Q8H [facility] Last Admin: 04/17/19 01:13 Dose: 100 mls/hr Lactated Ringer's (Ringers, Lactated) 1,000 mls @ 999 mls/hr IV ONETIME ONE Stop: 04/17/19 01:08 Last Admin: 04/17/19 13:50 Dose: Not Given Misoprostol (Cytotec) 50 mcg VAG ONETIME ONE Stop: 04/18/19 08:46 Last Admin: 04/18/19 09:45 Dose: 50 mcg Misoprostol (Cytotec) 50 mcg VAG ONETIME ONE Stop: 04/18/19 13:31 Last Admin: 04/18/19 14:15 Dose: 50 mcg Sodium Chloride (Saline Flush) 10 ml FLUSH ASDIRECTED PRN PRN Reason: Keep Vein Open Sodium Chloride (Saline Flush) 10 ml FLUSH ASDIRECTED PRN PRN Reason: Keep Vein Open - Uterine Contractions Uterine Monitoring Mode: External [place] Contraction Frequency (min): 1-4 Contraction Duration (sec): 30-40 Contraction Intensity: Mild Uterine Resting Tone: Soft - Monitoring Heart Rate (FHR) Variability: Moderate (6-25 bmp) Accelerations: Present, 15x15 Decelerations: None Strip Review: Category I - Vaginal Exam Dilation (cm): 2-3 Effacement (Percent): 90 Station: -1 Cervical Position: Midposition Sterile Vaginal Exam Performed By: Ayala Foresman - Labor Progress (Free Text) Labor Progress: 04/18/2019 Patient is still not progressing in labor and is now getting more symptomatic with her preeclampsia 2+ pitting edema, headache with occasional spots in vision, hyperreflexia and two beats of clonus each side SVE-remains minimally changed FHTs category one [place] irregular Plan- Continue to monitor for active labor Continue to monitor FHTs Continue magnesium per protocol Start pitocin per protocol Repeat all labs CBC, CMP, LDH at this time Will plan and anticipate a vaginal delivery
[2019-04-18] MEDS ORDERED: fentaNYL 100 MCG/2 ML SDV IVPUSH ONE (19:18)
--- NOTE | 2019-04-18 20:07 | PCM.PNLD ---
Labor Progress Note - VS & Meds Vital Signs: Last Vital Signs Temp 36.8 C 04/18/19 08:00 Pulse 108 H 04/18/19 18:50 Resp 18 04/18/19 18:50 BP 129/84 04/18/19 18:50 Pulse Ox 99 04/18/19 18:50 Active Medications: Current Medications Acetaminophen (Tylenol Extra Strength) 1,000 mg PO Q6H PRN PRN Reason: Pain Last Admin: 04/18/19 17:52 Dose: 1,000 mg Diphenhydramine HCl (Benadryl) 25 mg IVPUSH Q6H PRN PRN Reason: Itching Diphenhydramine HCl (Benadryl) 50 mg IVPUSH Q6H PRN PRN Reason: Itching Ephedrine Sulfate (Ephedrine Sulfate) 10 mg IVPUSH ASDIRECTED PRN PRN Reason: Hypotension Lactated Ringer's (Ringers, Lactated) 1,000 mls @ 50 mls/hr IV ASDIRECTED [facility] Last Admin: 04/17/19 23:35 Dose: 150 mls/hr Clindamycin Phosphate 900 mg/ (Sodium Chloride) 106 mls @ 200 mls/hr IV Q8H [facility] Last Admin: 04/18/19 16:01 Dose: 200 mls/hr Ropivacaine 200 mg/ Premix 100 mls @ 0 mls/hr EPIDUR ASDIRECTED [facility] Oxytocin/Sodium Chloride (Pitocin In Ns 20 Units/1,000 Ml) 20 unit in 1,000 mls @ 6 mls/hr IV TITRATE [facility]; Protocol Last Titration: 04/18/19 19:08 Dose: 12 mls/hr Metronidazole 500 mg/ Premix 100 mls @ 100 mls/hr IV Q8H [facility] Last Admin: 04/18/19 16:39 Dose: 100 mls/hr Magnesium Sulfate (Magnesium Sulfate In Water Premix) 40 gm in 1,000 mls @ 50 mls/hr IV ASDIRECTED [facility] Last Admin: 04/18/19 09:30 Dose: 2 gm/hr, 50 mls/hr Calcium Gluconate 1 gm/ Sodium (Chloride) 110 mls @ 100 mls/hr IV ONETIME PRN PRN Reason: mag toxicity Lactobacillus Rhamnosus (Culturelle) 1 cap PO BID [facility] Last Admin: 04/18/19 08:34 Dose: 1 cap Naloxone HCl (Narcan) 0.1 mg IVPUSH ASDIRECTED PRN PRN Reason: Oversedation Ondansetron HCl (Zofran) 4 mg IV Q4H PRN PRN Reason: Nausea/Vomiting Last Admin: 04/17/19 01:26 Dose: 4 mg Sodium Chloride (Saline Flush) 10 ml FLUSH ASDIRECTED PRN PRN Reason: Keep Vein Open Discontinued Medications Azithromycin (Zithromax) 1,000 mg PO ONETIME ONE Stop: 04/17/19 09:01 Last Admin: 04/17/19 08:14 Dose: 1,000 mg Ephedrine Sulfate (Ephedrine Sulfate) 10 mg IVPUSH ASDIRECTED PRN PRN Reason: Hypotension Fentanyl (Sublimaze) 50 - 100 mcg IVPUSH ONETIME ONE Stop: 04/18/19 19:19 Last Admin: 04/18/19 19:33 Dose: 50 mcg Metronidazole 500 mg/ Premix 100 mls @ 100 mls/hr IV Q8H [facility] Last Admin: 04/17/19 01:13 Dose: 100 mls/hr Lactated Ringer's (Ringers, Lactated) 1,000 mls @ 999 mls/hr IV ONETIME ONE Stop: 04/17/19 01:08 Last Admin: 04/17/19 13:50 Dose: Not Given Misoprostol (Cytotec) 50 mcg VAG ONETIME ONE Stop: 04/18/19 08:46 Last Admin: 04/18/19 09:45 Dose: 50 mcg Misoprostol (Cytotec) 50 mcg VAG ONETIME ONE Stop: 04/18/19 13:31 Last Admin: 04/18/19 14:15 Dose: 50 mcg Sodium Chloride (Saline Flush) 10 ml FLUSH ASDIRECTED PRN PRN Reason: Keep Vein Open Sodium Chloride (Saline Flush) 10 ml FLUSH ASDIRECTED PRN PRN Reason: Keep Vein Open - Uterine Contractions Uterine Monitoring Mode: External [place] Contraction Frequency (min): 1-4 Contraction Duration (sec): 30-40 Contraction Intensity: Mild Uterine Resting Tone: Soft - Monitoring Heart Rate (FHR) Variability: Moderate (6-25 bmp) Accelerations: Present, 15x15 Decelerations: None Strip Review: Category I - Vaginal Exam Dilation (cm): 2-3 Effacement (Percent): 90 Station: -1 Cervical Position: Midposition Sterile Vaginal Exam Performed By: Ayala Gómez - Labor Progress (Free Text) Labor Progress: 04/18/2019 Was able to give patient one dose IV fentanyl and AROM her with clear fluid. Patient now uncomfortable and danielle regular Labs still stable for preeclampsia Pitocin running per protocol Patients family and significant other at bedside and supportive Plan- Continue to monitor for labor Continue to monitor FHTs Continue pitocin per protocol Patient may have an epidural for pain management Continue antibiotics per orders Continue IV fluids per orders Continue Magnesium per protocol Plan and anticipate a vaginal delivery
[2019-04-18] MEDS ORDERED: Ropivacaine 100 ML ONE (20:34)
[2019-04-18] MEDS: Lactated Ringers 1,000 ML IV SCH (21:42)
--- NOTE | 2019-04-18 23:29 | PCM.PNLD ---
Labor Progress Note - VS & Meds Vital Signs: Last Vital Signs Temp 36.8 C 04/18/19 08:00 Pulse 85 04/18/19 19:30 Resp 18 04/18/19 19:30 BP 133/85 04/18/19 19:30 Pulse Ox 99 04/18/19 19:30 Active Medications: Current Medications Acetaminophen (Tylenol Extra Strength) 1,000 mg PO Q6H PRN PRN Reason: Pain Last Admin: 04/18/19 17:52 Dose: 1,000 mg Diphenhydramine HCl (Benadryl) 25 mg IVPUSH Q6H PRN PRN Reason: Itching Diphenhydramine HCl (Benadryl) 50 mg IVPUSH Q6H PRN PRN Reason: Itching Ephedrine Sulfate (Ephedrine Sulfate) 10 mg IVPUSH ASDIRECTED PRN PRN Reason: Hypotension Lactated Ringer's (Ringers, Lactated) 1,000 mls @ 50 mls/hr IV ASDIRECTED [facility] Last Admin: 04/18/19 21:42 Dose: 150 mls/hr Clindamycin Phosphate 900 mg/ (Sodium Chloride) 106 mls @ 200 mls/hr IV Q8H [facility] Last Admin: 04/18/19 16:01 Dose: 200 mls/hr Ropivacaine 200 mg/ Premix 100 mls @ 0 mls/hr EPIDUR ASDIRECTED [facility] Oxytocin/Sodium Chloride (Pitocin In Ns 20 Units/1,000 Ml) 20 unit in 1,000 mls @ 6 mls/hr IV TITRATE [facility]; Protocol Last Titration: 04/18/19 22:15 Dose: 18 mls/hr Metronidazole 500 mg/ Premix 100 mls @ 100 mls/hr IV Q8H [facility] Last Admin: 04/18/19 16:39 Dose: 100 mls/hr Magnesium Sulfate (Magnesium Sulfate In Water Premix) 40 gm in 1,000 mls @ 50 mls/hr IV ASDIRECTED [facility] Last Admin: 04/18/19 09:30 Dose: 2 gm/hr, 50 mls/hr Calcium Gluconate 1 gm/ Sodium (Chloride) 110 mls @ 100 mls/hr IV ONETIME PRN PRN Reason: mag toxicity Lactobacillus Rhamnosus (Culturelle) 1 cap PO BID [facility] Last Admin: 04/18/19 08:34 Dose: 1 cap Naloxone HCl (Narcan) 0.1 mg IVPUSH ASDIRECTED PRN PRN Reason: Oversedation Ondansetron HCl (Zofran) 4 mg IV Q4H PRN PRN Reason: Nausea/Vomiting Last Admin: 04/17/19 01:26 Dose: 4 mg Sodium Chloride (Saline Flush) 10 ml FLUSH ASDIRECTED PRN PRN Reason: Keep Vein Open Discontinued Medications Azithromycin (Zithromax) 1,000 mg PO ONETIME ONE Stop: 04/17/19 09:01 Last Admin: 04/17/19 08:14 Dose: 1,000 mg Ephedrine Sulfate (Ephedrine Sulfate) 10 mg IVPUSH ASDIRECTED PRN PRN Reason: Hypotension Fentanyl (Sublimaze) 50 - 100 mcg IVPUSH ONETIME ONE Stop: 04/18/19 19:19 Last Admin: 04/18/19 19:33 Dose: 50 mcg Metronidazole 500 mg/ Premix 100 mls @ 100 mls/hr IV Q8H [facility] Last Admin: 04/17/19 01:13 Dose: 100 mls/hr Lactated Ringer's (Ringers, Lactated) 1,000 mls @ 999 mls/hr IV ONETIME ONE Stop: 04/17/19 01:08 Last Admin: 04/17/19 13:50 Dose: Not Given Ropivacaine (Naropin 0.2%) Confirm Administered Dose 100 mls @ as directed .ROUTE .STK-MED ONE Stop: 04/18/19 20:35 Misoprostol (Cytotec) 50 mcg VAG ONETIME ONE Stop: 04/18/19 08:46 Last Admin: 04/18/19 09:45 Dose: 50 mcg Misoprostol (Cytotec) 50 mcg VAG ONETIME ONE Stop: 04/18/19 13:31 Last Admin: 04/18/19 14:15 Dose: 50 mcg Sodium Chloride (Saline Flush) 10 ml FLUSH ASDIRECTED PRN PRN Reason: Keep Vein Open Sodium Chloride (Saline Flush) 10 ml FLUSH ASDIRECTED PRN PRN Reason: Keep Vein Open - Uterine Contractions Uterine Monitoring Mode: External [place] Contraction Frequency (min): 1-4 Contraction Duration (sec): 30-40 Contraction Intensity: Mild Uterine Resting Tone: Soft - Monitoring Monitor Mode: External Ultrasound Heart Rate (FHR) Variability: Moderate (6-25 bmp) Accelerations: Present, 15x15 Decelerations: None Strip Review: Category I - Vaginal Exam Dilation (cm): 4 Effacement (Percent): 95 Station: -1 Cervical Position: Midposition Sterile Vaginal Exam Performed By: Ayala Gómez - Labor Progress (Free Text) Labor Progress: 04/18/2019 Patient not progressing very well SVE-//-1, lots of molding and caput felt on head FHTs at times are a category two with less variability and did have decels after epidural placement Discussed all options with patient, significant other and mother of patient. They would like time to discuss
--- NOTE | 2019-04-18 23:50 | PCM.PNLD ---
Labor Progress Note - VS & Meds Vital Signs: Last Vital Signs Temp 36.8 C 04/18/19 08:00 Pulse 85 04/18/19 19:30 Resp 18 04/18/19 19:30 BP 133/85 04/18/19 19:30 Pulse Ox 99 04/18/19 19:30 Active Medications: Current Medications Acetaminophen (Tylenol Extra Strength) 1,000 mg PO Q6H PRN PRN Reason: Pain Last Admin: 04/18/19 17:52 Dose: 1,000 mg Diphenhydramine HCl (Benadryl) 25 mg IVPUSH Q6H PRN PRN Reason: Itching Diphenhydramine HCl (Benadryl) 50 mg IVPUSH Q6H PRN PRN Reason: Itching Ephedrine Sulfate (Ephedrine Sulfate) 10 mg IVPUSH ASDIRECTED PRN PRN Reason: Hypotension Lactated Ringer's (Ringers, Lactated) 1,000 mls @ 50 mls/hr IV [facility]RECTED [facility] Last Admin: 04/18/19 21:42 Dose: 150 mls/hr Clindamycin Phosphate 900 mg/ (Sodium Chloride) 106 mls @ 200 mls/hr IV Q8H [facility] Last Admin: 04/18/19 16:01 Dose: 200 mls/hr Ropivacaine 200 mg/ Premix 100 mls @ 0 mls/hr EPIDUR ASDIRECTED [facility] Oxytocin/Sodium Chloride (Pitocin In Ns 20 Units/1,000 Ml) 20 unit in 1,000 mls @ 6 mls/hr IV TITRATE [facility]; Protocol Last Titration: 04/18/19 22:15 Dose: 18 mls/hr Metronidazole 500 mg/ Premix 100 mls @ 100 mls/hr IV Q8H [facility] Last Admin: 04/18/19 16:39 Dose: 100 mls/hr Magnesium Sulfate (Magnesium Sulfate In Water Premix) 40 gm in 1,000 mls @ 50 mls/hr IV ASDIRECTED [facility] Last Admin: 04/18/19 09:30 Dose: 2 gm/hr, 50 mls/hr Calcium Gluconate 1 gm/ Sodium (Chloride) 110 mls @ 100 mls/hr IV ONETIME PRN PRN Reason: mag toxicity Lactobacillus Rhamnosus (Culturelle) 1 cap PO BID [facility] Last Admin: 04/18/19 08:34 Dose: 1 cap Naloxone HCl (Narcan) 0.1 mg IVPUSH ASDIRECTED PRN PRN Reason: Oversedation Ondansetron HCl (Zofran) 4 mg IV Q4H PRN PRN Reason: Nausea/Vomiting Last Admin: 04/17/19 01:26 Dose: 4 mg Sodium Chloride (Saline Flush) 10 ml FLUSH ASDIRECTED PRN PRN Reason: Keep Vein Open Discontinued Medications Azithromycin (Zithromax) 1,000 mg PO ONETIME ONE Stop: 04/17/19 09:01 Last Admin: 04/17/19 08:14 Dose: 1,000 mg Ephedrine Sulfate (Ephedrine Sulfate) 10 mg IVPUSH ASDIRECTED PRN PRN Reason: Hypotension Fentanyl (Sublimaze) 50 - 100 mcg IVPUSH ONETIME ONE Stop: 04/18/19 19:19 Last Admin: 04/18/19 19:33 Dose: 50 mcg Metronidazole 500 mg/ Premix 100 mls @ 100 mls/hr IV Q8H [facility] Last Admin: 04/17/19 01:13 Dose: 100 mls/hr Lactated Ringer's (Ringers, Lactated) 1,000 mls @ 999 mls/hr IV ONETIME ONE Stop: 04/17/19 01:08 Last Admin: 04/17/19 13:50 Dose: Not Given Ropivacaine (Naropin 0.2%) Confirm Administered Dose 100 mls @ as directed .ROUTE .STK-MED ONE Stop: 04/18/19 20:35 Misoprostol (Cytotec) 50 mcg VAG ONETIME ONE Stop: 04/18/19 08:46 Last Admin: 04/18/19 09:45 Dose: 50 mcg Misoprostol (Cytotec) 50 mcg VAG ONETIME ONE Stop: 04/18/19 13:31 Last Admin: 04/18/19 14:15 Dose: 50 mcg Sodium Chloride (Saline Flush) 10 ml FLUSH ASDIRECTED PRN PRN Reason: Keep Vein Open Sodium Chloride (Saline Flush) 10 ml FLUSH ASDIRECTED PRN PRN Reason: Keep Vein Open - Uterine Contractions Uterine Monitoring Mode: External [place] Contraction Frequency (min): 1-4 Contraction Duration (sec): 30-40 Contraction Intensity: Mild Uterine Resting Tone: Soft - Monitoring Monitor Mode: External Ultrasound Heart Rate (FHR) Variability: Moderate (6-25 bmp) Accelerations: Present, 15x15 Decelerations: None Strip Review: Category I - Vaginal Exam Dilation (cm): 4 Effacement (Percent): 95 Station: -1 Cervical Position: Midposition Sterile Vaginal Exam Performed By: Ayala Gómez - Labor Progress (Free Text) Labor Progress: 04/18/2019 Patient still same SVE FHTs still with no accelerations Decision made to proceed with a primary at this time OR team called at this time
[2019-04-19] MEDS ORDERED: Oxytocin 10 Units/1 ML SDV ONE ×3 (00:10→00:22)
[2019-04-19] MEDS ORDERED: Bupivacaine 0.5% 30 ML SDV ONE (00:44)
[2019-04-19] MEDS ORDERED: cefOXitin 2 GM Vial ONE (00:44)
[2019-04-19] MEDS ORDERED: Morphine PF 10 MG/10 ML SDV EPIDUR PRN (01:00)
[2019-04-19] MEDS ORDERED: Meperidine PF 100 MG/ML Syringe IM PRN (01:00)
[2019-04-19] MEDS ORDERED: cefOXitin 1 GM Vial ONE (01:00)
[2019-04-19] MEDS ORDERED: Morphine PF 10 MG/10 ML SDV ONE (01:05)
[2019-04-19] MEDS ORDERED: HYDROmorphone 0.5 MG/0.5 ML Syringe IVPUSH PRN (01:30)
[2019-04-19] MEDS ORDERED: hydrOXYzine HCL 100 MG/2 ML SDV IM PRN (01:30)
[2019-04-19] MEDS ORDERED: HYDROmorphone 1 MG/ML Syringe IVPUSH PRN (01:30)
[2019-04-19] MEDS ORDERED: Benzocaine 20% Top Spray 56 GM Bottle TOP PRN (01:48)
[2019-04-19] MEDS ORDERED: Witch Hazel Medicated Pads 100/Jar TOP PRN (01:48)
[2019-04-19] MEDS ORDERED: Ibuprofen 600 MG Tab PO SCH ×2 (02:00→03:00)
[2019-04-19] MEDS ORDERED: Acetaminophen 500 MG Tab PO SCH (02:00)
[2019-04-19] MEDS: Clindamycin Phosphate 900 MG in Sodium Chloride 0.9% 100 ML IV SCH ×3 (03:20→18:37)
[2019-04-19] MEDS ORDERED: Dextrose 5%-Lactated Ringers 1,000 ML IV SCH ×3 (03:27→08:15)
[2019-04-19] MEDS: Lactobacillus Rhamnosus GG (Probiotic) Cap PO SCH ×3 (05:34→22:23)
[2019-04-19] MEDS: Magnesium Sulfate/Water 40 GM/1,000 ML BAG IV SCH (07:14)
[2019-04-19] MEDS ORDERED: Calcium Gluconate 1 GM in Sodium Chloride 0.9% 100 ML IV PRN (07:20)
--- NOTE | 2019-04-19 07:23 | CRLUS ---
Final Report: INDICATION: Preeclampsia TECHNIQUE: Ultrasound OB pelvis transabdominal. Real-time melgar-scale imaging of the fetus was performed with color Doppler and spectral Doppler analysis of the umbilical artery without stress testing. COMPARISON: None FINDINGS: Clinical age of 37 weeks 2 days (PATIENCE 05/06/2019). Sonographic imaging demonstrates a single living intrauterine gestation. Fetus demonstrates a regular cardiac rate of 150 beats per minute. Fetus has a cephalic orientation. The placenta lies anterior. Amniotic fluid volume appears normal with an LUISA of 10.7 cm. breathing movements, motion, and tone were all observed. Umbilical cord S/D ratio of 2.68 IMPRESSION: 1. Single live intrauterine gestation with a clinical age of 37 weeks 2 days in vertex presentation. 2. Biophysical profile score of 8 out of 8. 3. Normal amniotic fluid volume. 4. Normal umbilical cord Doppler. Dictated by Yuri Hilario MD @ Apr 17 2019 1:16AM Signed by: Yuri Hilario MD @04/17/2019 1:19:15 AM (Electronic Signature) [facility]
[2019-04-19] MEDS ORDERED: HYDROmorphone 2 MG Tab PO PRN (08:18)
[2019-04-19] MEDS: metroNIDAZOLE/Normal Saline 500 MG in Premix Bag 1 BAG IV SCH ×2 (08:36→17:32)
[2019-04-19] MEDS: Nicotine 14 MG/24 Hr Patch TRDERM SCH (08:36)
[2019-04-19] MEDS ORDERED: Fluconazole 150 MG Tab PO ONE (09:00)
--- NOTE | 2019-04-19 09:43 | PN ---
DATE OF SERVICE: 04/19/2019 SUBJECTIVE: Sherita had a with delivery of her baby at 1:07 a.m. She states she is having no pain. Epidurals intact. Vital signs have been stable. Has no questions or concerns today. OBJECTIVE: GENERAL: Sherita Stroud is a 18-year-old female. VITAL SIGNS: TPR is 97.7, 90, 16, blood pressure 125/77. HEENT: Negative. NECK: Supple. HEART: Regular rate and rhythm. LUNGS: Clear. ABDOMEN: Negative. EXTREMITIES: Negative. ASSESSMENT: section, term , date 04/19/2019. PLAN: Regular diet. Epidural will be left in. We will evaluate p.r.n. or in a.m. Tiffanie Peña PA-C /[id number]
[2019-04-19] MEDS: Ibuprofen 600 MG Tab PO SCH ×2 (11:39→17:32)
--- NOTE | 2019-04-19 13:41 | ANES ---
DATE OF SERVICE: 04/19/2019 INDICATIONS: Ms. Stroud is a 18-year-old female, in Labor and Delivery in active labor. She is approximately 3 to 4 cm and progressing nicely. She does have a history of seizures and a little bit of a pre-eclamptic condition. I did discuss at length with her the risks and benefits of the procedure. She wished to proceed with a labor epidural. PROCEDURE IN DETAIL: She was placed in a sitting position. Her back was prepped x3 with Betadine. 1% lidocaine skin local was used. The epidural was placed at L2-L3 using a 17- gauge Tuohy needle in loss of resistance technique. The epidural had very good feel throughout, and the epidural space was easily identified. There was negative CSF, negative blood, and negative paresthesias noted. Therefore, a catheter was threaded to 15 cm at the skin. There was negative CSF, negative blood, and negative paresthesias noted in the catheter as well. The catheter was then secured with Tegaderm and tape. A 3 mL test dose of 1.5% lidocaine with epinephrine was given and this test dose was negative. The patient was then placed in a supine position. A 0.2% ropivacaine bolus of 12 mL was given. The bolus had very good relief, and therefore a 0.2% ropivacaine drip was started at 12 mL/h. The patient tolerated the labor epidural very nicely. Her vital signs remained stable throughout the procedure and nurse was with me for the entire procedure. There were no anesthesia complications noted, and we will continue to monitor her throughout her Labor and Delivery stay. Milan Lorenzo CRNA /[id number]
[2019-04-19] MEDS: Acetaminophen 500 MG Tab PO SCH ×2 (14:08→18:43)
[2019-04-19] MEDS ORDERED: Potassium Chloride 20 MEQ Tab.ER PO ONE (17:00)
[2019-04-20] MEDS: Acetaminophen 500 MG Tab PO SCH ×5 (00:55→23:38)
[2019-04-20] MEDS: Ibuprofen 600 MG Tab PO SCH ×5 (00:55→23:38)
[2019-04-20] MEDS: metroNIDAZOLE/Normal Saline 500 MG in Premix Bag 1 BAG IV SCH ×3 (00:55→16:48)
[2019-04-20] MEDS: Clindamycin Phosphate 900 MG in Sodium Chloride 0.9% 100 ML IV SCH ×3 (02:56→18:00)
[2019-04-20] MEDS: Magnesium Sulfate/Water 40 GM/1,000 ML BAG IV SCH (03:05)
--- NOTE | 2019-04-20 08:12 | PCM.SN ---
- Free Text/Narrative Note: 04/20/19 PPD 1# post primary c section Pain well controlled, up in chair, she needs to walk and care for . Murphy out and she is voiding, No BM yet. eating and drinking Mood happy VS stable, no fevers flow light remains slightly puffy, no clonus Preeclampsia, Mag now off, blood pressure stable Smoker, patch on, no outside smoking education today on baby cares Have public health see her and sign her up for [facility] If all is well home tomorrow
[2019-04-20] MEDS: Docusate Sodium 100 MG Cap PO SCH ×2 (09:23→21:39)
[2019-04-20] MEDS: Nicotine 14 MG/24 Hr Patch TRDERM SCH (09:24)
[2019-04-20] MEDS: Bisacodyl 5 MG Tab PO SCH ×2 (09:24→21:39)
[2019-04-20] MEDS: Lactobacillus Rhamnosus GG (Probiotic) Cap PO SCH ×2 (09:24→21:39)
--- NOTE | 2019-04-20 09:48 | PN ---
DATE OF SERVICE: 04/20/2019 SUBJECTIVE: Sherita is postop . She has been up ambulating back and forth to the bathroom, using her incentive spirometer. Magnesium this morning is 5.3. Pain has been controlled. REVIEW OF SYSTEMS: Remainder of review of systems negative for any pertinent positives and negatives. OBJECTIVE: GENERAL: Sherita Stroud is a pleasant 18-year-old female, alert and orientated. VITAL SIGNS: TPR 96.5, 86, 16, blood pressure 145/91. HEENT: Negative. NECK: Supple. HEART: Regular rate and rhythm. LUNGS: Clear. ABDOMEN: Soft. incision is glued and clean and dry. EXTREMITIES: Without peripheral edema. ASSESSMENT: section, term , date of surgery 04/19/2019. PLAN: 1. May shower. 2. Colace 100 mg b.i.d. p.o. 3. Dulcolax 10 mg b.i.d., may stop when the patient has bowel movement. 4. Encouraged ambulation. 5. We will evaluate p.r.n. or in a.m. Tiffanie Peña PA-C /[id number]
[2019-04-21] MEDS: metroNIDAZOLE/Normal Saline 500 MG in Premix Bag 1 BAG IV SCH ×2 (00:51→08:15)
[2019-04-21] MEDS: Clindamycin Phosphate 900 MG in Sodium Chloride 0.9% 100 ML IV SCH ×2 (02:25→10:10)
[2019-04-21] MEDS: Ibuprofen 600 MG Tab PO SCH (05:37)
[2019-04-21] MEDS: Acetaminophen 500 MG Tab PO SCH (05:38)
[2019-04-21 07:34] VITALS: BP 142/89; PULSE 82
[2019-04-21] MEDS: Nicotine 14 MG/24 Hr Patch TRDERM SCH (08:16)
[2019-04-21] MEDS: Docusate Sodium 100 MG Cap PO SCH (08:46)
[2019-04-21] MEDS: Lactobacillus Rhamnosus GG (Probiotic) Cap PO SCH (08:46)
[2019-04-21] MEDS: Bisacodyl 5 MG Tab PO SCH (08:46)
[2019-04-21] MEDS ORDERED: metroNIDAZOLE 250 MG Tab PO SCH (09:00)
--- NOTE | 2019-04-21 11:07 | DISCH ---
ADMISSION DIAGNOSES: Term , preeclampsia, insufficient care third trimester, bacterial vaginosis, group B Streptococcus infection, anxiety, contact dermatitis, and psychiatric pseudoseizure. DISCHARGE DIAGNOSIS: section, term , failure to progress. Date of surgery: 04/19/2019. Surgeon: Kee Pérez MD. HISTORY: Sherita Stroud is at term with failure to progress and preeclampsia. After preoperative evaluation and discussion of possible risks and possible complications, she wished to proceed with surgical procedure. HOSPITAL COURSE: Sherita had her on 04/19/2019. She delivered a viable female baby. She had no operative complications. On postoperative day #1, her epidural was discontinued. She remained to be on magnesium due to preeclampsia until 04/20/2019. Her pain was controlled. Activity was good. She did have a bowel movement on 04/20/2019, and was able to be discharged to home without any complications. PHYSICAL EXAMINATION: GENERAL: Sherita is a pleasant 18-year-old female. VITAL SIGNS: Height is 5 feet 6.14 inches, weight is 207 pounds. TPR is 96.8, 82, 16, blood pressure 142/89. HEENT: Negative. NECK: Supple. HEART: Regular rate and rhythm. LUNGS: Clear. ABDOMEN: Soft, nontender. section is glued and is clean and healing well. EXTREMITIES: Without peripheral edema. DISPOSITION: Discharged to home. CONDITION: Stable and improving. HOME MEDICATIONS: 1. Flagyl 500 mg p.o. every 12 hours, #6. 2. Colace 100 mg p.o. b.i.d., #60. 3. Culturelle 1 capsule b.i.d., #60. 4. Tylenol 1000 mg q.6 hours p.r.n. pain, #40. 5. Ibuprofen 600 mg oral q.6 hours p.r.n. pain, #40. 6. She is to resume her vitamins as directed. FOLLOWUP APPOINTMENTS: 1. Ayala Gómez CNM, on 06/02/2019 at 11 a.m. 2. Tiffanie Peña PA-C, 04/26/2019 at 10 a.m. at the Surgery Department. DIET: Usual diet as tolerated. Drink 8 to 10 glasses of water a day. ACTIVITY: No lifting greater than 10 pounds, but may lift baby in car seat, but nothing heavier for 6 weeks. Driving: Do not drive for 1 week. Shower/bathing: May shower. No tub bathing or swimming for 8 weeks. DISCHARGE INSTRUCTIONS: Notify provider if any fever, increased pain, nausea, or vomiting. Keep site clean and dry. Use incentive spirometer 10 times every hour while awake.
--- NOTE | 2019-04-25 12:48 | OR ---
DATE OF PROCEDURE: 04/19/2019 SURGEON: Kee Pérez MD PREOPERATIVE DIAGNOSIS: Term with failure to progress. POSTOPERATIVE DIAGNOSIS: Term with failure to progress. OPERATIVE PROCEDURE: section (08224). CUSTOMER COUNTER ASSOCIATE: Ayala Gómez CNM ANESTHESIA: Epidural. INDICATIONS FOR PROCEDURE: This is a 18-year-old female presenting with a term with failure to progress. She was noted to have transient deceleration, and at that point, decision was made to proceed with section. Potential risks of the procedure including bleeding, infection, injury to the underlying structures or baby were all reviewed, and the patient wishes to proceed. DETAILS OF PROCEDURE: The patient was taken to the operating room after Murphy catheter was inserted with a roll underneath the right hip. The abdomen was prepped and draped. A transverse Pfannenstiel-type incision was made and carried down through the skin and subcutaneous tissue and anterior rectus sheath. Subrectus sheath flaps were then raised superiorly and inferiorly, and the midline musculature peritoneum divided. Peritoneal reflection of the bladder on the uterus was then divided and the bladder reflected downward. A transverse uterine incision was made and a viable female was delivered through a vertex presentation. Cord was clamped and cut and routine care was given off the field. The score on the was 8 and 9 at one and five minutes respectively. The patient was given IV intrauterine oxytocin and IV cefoxitin. Placenta was delivered without difficulty and good uterine contractions were noted. The uterine incision was then closed with 2 layers of 2-0 Vicryl stitch as was the peritoneal reflection of the bladder on the uterus. The midline musculature and peritoneum were approximated with #2 Vicryl stitch as was the rectus sheath, and the skin closed with 4-0 Vicryl stitch deep and a 4-0 Vicryl subcuticular stitch. Dressing was applied. The patient was taken to the recovery room in satisfactory condition. Kee Pérez MD /[id number]
== END 2019-04-21 10:35 | disposition home or self-care (01) | DRG 788 ==
LOC: JP.OBCHECK 21:12 → JP.OB 23:33 → OBSVTOIN 04-19 01:07 → JP.MS 04-19 01:08
PROVIDERS: ADMIT Advanced Practice Midwife; ATTEND Surgery
PROC: 10D00Z1 Extraction of Products of Conception, Low, Open Approach (ICD-10-PCS; principal; 2019-04-19)
PROC: 10907ZC Drainage of Amniotic Fluid, Therapeutic from Products of Conception, Via Natural or Artificial Opening (ICD-10-PCS; 2019-04-19)
PROC: 3E0P7VZ Introduction of Hormone into Female Reproductive, Via Natural or Artificial Opening (ICD-10-PCS; 2019-04-19)
PROC: 00HU33Z Insertion of Infusion Device into Spinal Canal, Percutaneous Approach (ICD-10-PCS; 2019-04-19)
PROC: 3E0R3BZ Introduction of Anesthetic Agent into Spinal Canal, Percutaneous Approach (ICD-10-PCS; 2019-04-19)
DX: O14.94 Unspecified pre-eclampsia, complicating childbirth (principal); Z3A.37 37 weeks gestation of pregnancy; Z37.0 Single live birth; O99.334 Smoking (tobacco) complicating childbirth; F17.210 Nicotine dependence, cigarettes, uncomplicated; O75.3 Other infection during labor; B96.89 Other specified bacterial agents as the cause of diseases classified elsewhere; O62.1 Secondary uterine inertia; O76 Abnormality in fetal heart rate and rhythm complicating labor and delivery
CPT/HCPCS: 36415; 51702; 59409; 76818; 76820; 80053; 80305-QW; 81001; 82570; 83615; 83735; 84156; 85025; 85027; 86850; 86900; 86901; 88307; 94762; 99211; A9270-GY; J0694; J2270; J2405; J2590; J2795; J3010; J3475; J3490; J7050; J7120; J7121

== ENCOUNTER 2019-06-01 20:08 | Emergency (ER) | payer MEDICAID ==
[2019-06-01 20:35] VITALS: BP 126/85; PULSE 95
--- NOTE | 2019-06-01 20:40 | EDM.PDOC ---
ED HPI GENERAL MEDICAL PROBLEM - General Chief Complaint: Abdominal Pain Stated Complaint: INCISION PAIN/ Time Seen by Provider: 06/01/19 20:15 Source of Information: Reports: Patient History Limitations: Reports: No Limitations - History of Present Illness INITIAL COMMENTS - FREE TEXT/NARRATIVE: This is a 18-year-old female who presents with concerns of intermittent pain at the site of recent incision. She had a performed on April 19. Since this time she has had intermittent sharp pains, made worse by movement, at the right side of the incision. She denies any nausea or vomiting. No fevers. No vaginal pain. No urinary symptoms. Her mother thought she should come to the ED to get it checked out this evening. 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 History: Neurological History: Reports: Concussion Psychiatric History: Reports: Anxiety, Depression, Other (See Below) Other Psychiatric History: manic depressive: not on medications - Infectious Disease History Infectious Disease History: Reports: Chicken Pox - Past Surgical History Head Surgeries/Procedures: Reports: None HEENT Surgical History: Reports: Myringotomy w Tube(s) Neurological Surgical History: Reports: None Dermatological Surgical History: Reports: None Social & Family History - Family History Family Medical History: Noncontributory - Caffeine Use Caffeine Use: Reports: Soda ED ROS GENERAL - Review of Systems Review Of Systems: See Below Constitutional: Reports: No Symptoms HEENT: Reports: No Symptoms Respiratory: Reports: No Symptoms Cardiovascular: Reports: No Symptoms Endocrine: Reports: No Symptoms GI/Abdominal: Reports: Abdominal Pain : Reports: No Symptoms Musculoskeletal: Reports: No Symptoms Skin: Reports: No Symptoms Neurological: Reports: No Symptoms Psychiatric: Reports: No Symptoms Hematologic/Lymphatic: Reports: No Symptoms Immunologic: Reports: No Symptoms ED EXAM, GI/ABD - Physical Exam Exam: See Below Exam Limited By: No Limitations General Appearance: Alert, No Apparent Distress Ears: Normal External Exam Nose: Normal Inspection Throat/Mouth: Normal Inspection Head: Atraumatic, Normocephalic Neck: Normal Inspection Respiratory/Chest: Lungs Clear Cardiovascular: Regular Rate, Rhythm GI/Abdominal Exam: Soft, Non-Tender, Other (Incision site appears well-healing. Mild tenderness on the right lateral side.) Rectal (Female) Exam: Normal Exam Back Exam: Normal Inspection Extremities: Normal Inspection Neurological: Alert, Oriented Psychiatric: Normal Affect, Normal Mood Skin Exam: Warm, Dry Course - Vital Signs Last Recorded V/S: Last Vital Signs Temp 36.4 C 06/01/19 20:54 Pulse 95 06/01/19 20:54 Resp 16 06/01/19 20:54 BP 126/85 06/01/19 20:54 Pulse Ox 97 06/01/19 20:54 - Re-Assessments/Exams Free Text/Narrative Re-Assessment/Exam: 18-year-old presents with intermittent pain at incision since her operation proximately 6 weeks ago. She has normal vital signs. She has a benign abdominal exam. The incision appears well-healing. She is safe for discharge, this is an issue appropriately followed up with her surgeon in clinic. She will call for appointment tomorrow. 06/01/19 21:46 Departure - Departure Time of Disposition: 20:40 Disposition: Home, Self-Care 01 Clinical Impression: Incisional pain - Discharge Information Instructions: Delivery, Care After Referrals: PCP,None [Primary Care Provider] - Forms: ED Department Discharge Additional Instructions: Please follow up with Dr Pérez for persistent symptoms Sepsis Event Note - Focused Exam Vital Signs: Vital Signs Temp Pulse Resp BP Pulse Ox 06/01/19 20:54 36.4 C 95 16 126/85 97 06/01/19 20:33 36.4 C 95 16 126/85 97 Date Exam was Performed: 06/01/19 Time Exam was Performed: 21:42
== END 2019-06-01 21:03 | disposition home or self-care (01) ==
LOC: JP.ED 20:08
DX: O90.89 Other complications of the puerperium, not elsewhere classified (principal); R10.31 Right lower quadrant pain; Z88.0 Allergy status to penicillin
CPT/HCPCS: 99283

== ENCOUNTER 2020-02-07 19:25 | Emergency (ER) | payer SELFPAY ==
[2020-02-07 19:40] VITALS: BP 116/78; PULSE 98
[2020-02-07] MEDS ORDERED: Ondansetron 4 MG Tab.DIS PO ONE (20:15)
--- NOTE | 2020-02-07 20:17 | EDM.PDOC ---
ED HPI GENERAL MEDICAL PROBLEM - General Chief Complaint: Gastrointestinal Problem Stated Complaint: VOMITING BLOOD Time Seen by Provider: 02/07/20 20:05 Source of Information: Reports: Patient History Limitations: Reports: No Limitations - History of Present Illness INITIAL COMMENTS - FREE TEXT/NARRATIVE: 19-year-old female has had 3 episodes of emesis in the past 2 hours, also 1 episode of diarrhea 1 hour ago. No fevers or chills, some mild upper abdominal discomfort but no significant pain. 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 Onset: Sudden (Symptoms started fairly suddenly just 2 to 3 hours ago) Associated Symptoms: Reports: Malaise, Nausea/Vomiting. 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 History: Neurological History: Reports: Concussion, Seizure Other Neuro History: Seizures from very high stress Psychiatric History: Reports: ADHD, Anxiety, Bipolar, Depression Other Psychiatric History: manic depressive: not on medications - Infectious Disease History Infectious Disease History: Reports: Chicken Pox, Shingles - Past Surgical History Head Surgeries/Procedures: Reports: None HEENT Surgical History: Reports: Myringotomy w Tube(s) Female Surgical History: Reports: Section Neurological Surgical History: Reports: None Dermatological Surgical History: Reports: None Social & Family History - Family History Family Medical History: No Pertinent Family History - Tobacco Use Tobacco Use Status *Q: Current Every Day Tobacco User Years of Tobacco use: 5 Packs/Tins Daily: 1 - Caffeine Use Caffeine Use: Reports: Soda - Recreational Drug Use Recreational Drug Use: No ED ROS GENERAL - Review of Systems Review Of Systems: See Below Constitutional: Reports: Malaise. Denies: Fever, Chills HEENT: Reports: No Symptoms. Denies: Throat Pain Respiratory: Denies: Shortness of Breath, Cough Cardiovascular: Denies: Chest Pain GI/Abdominal: Reports: Abdominal Pain (Mild upper abdominal discomfort), Diarrhea. Denies: Hematemesis, Hematochezia Skin: Reports: No Symptoms Neurological: Reports: No Symptoms. Denies: Headache Psychiatric: Reports: No Symptoms ED EXAM, GI/ABD - Physical Exam Exam: See Below Exam Limited By: No Limitations General Appearance: Alert, No Apparent Distress Eyes: Bilateral: Normal Appearance Head: Atraumatic Respiratory/Chest: Lungs Clear Cardiovascular: Regular Rate, Rhythm GI/Abdominal Exam: Soft, Non-Tender Extremities: Normal Inspection Neurological: Alert, Oriented Psychiatric: Normal Affect, Normal Mood Skin Exam: Warm, Dry Course - Vital Signs Last Recorded V/S: Last Vital Signs Temp 96.1 F L 02/07/20 19:43 Pulse 98 02/07/20 19:43 Resp 20 02/07/20 19:43 BP 116/78 02/07/20 19:43 Pulse Ox 96 02/07/20 19:43 - Orders/Labs/Meds Labs: Laboratory Tests 02/07/20 Range/Units 20:01 SARS-CoV-2 RNA ([facility]) Negative (NEGATIVE) Meds: Medications Discontinued Medications Generic Name Dose Route Start Last Admin Trade Name Yrn PRN Reason Stop Dose Admin Ondansetron HCl 4 mg 02/07/20 20:15 02/07/20 20:26 Zofran Odt PO 02/07/20 20:16 4 mg ONETIME ONE Administration - Re-Assessments/Exams Free Text/Narrative Re-Assessment/Exam: 02/07/20 21:29 A Covid was tested and the patient was given 4 mg of sublingual Zofran. 1 hour later the Covid test was negative, patient felt better so will be discharged with 5 additional doses of Zofran and can be rechecked in the next 1 to 2 days if not improving. Information on viral gastroenteritis was given. Departure - Departure Time of Disposition: 21:12 Disposition: Home, Self-Care 01 Clinical Impression: Gastroenteritis - Discharge Information Instructions: Viral Gastroenteritis, Adult, [id number] Referrals: PCP,None [Primary Care Provider] - Forms: ED Department Discharge Care Plan Goals: Rest, fluids, increase activity as tolerated and recheck in 2-3 days if not improving. Concentrate on fluids initially. Use zofran for nausea as prescribed. Sepsis Event Note (ED) - Evaluation Sepsis Screening Result: No Definite Risk - Focused Exam Vital Signs: Vital Signs Temp Pulse Resp BP Pulse Ox 02/07/20 19:43 96.1 F L 98 20 116/78 96 02/07/20 19:39 96.1 F L 98 20 116/78 96
== END 2020-02-07 21:13 | disposition home or self-care (01) ==
LOC: JP.ED 19:25
DX: K52.9 Noninfective gastroenteritis and colitis, unspecified (principal); F17.210 Nicotine dependence, cigarettes, uncomplicated; Z88.0 Allergy status to penicillin; Z20.828 Contact with and (suspected) exposure to other viral communicable diseases
CPT/HCPCS: 87635; 99284; A9270; 99283; U0002

== ENCOUNTER 2021-11-04 11:20 | Emergency (ER) | payer MEDICAID, OTHER ==
[2021-11-04 11:40] VITALS: BP 126/79; PULSE 91
== END 2021-11-04 12:01 | disposition home or self-care (01) ==
LOC: JP.ED 11:20
DX: S00.33XA Contusion of nose, initial encounter (principal); Z88.0 Allergy status to penicillin; Z87.891 Personal history of nicotine dependence; W22.8XXA Striking against or struck by other objects, initial encounter
CPT/HCPCS: 99283

== ENCOUNTER 2023-09-20 13:09 | Emergency (ER) | payer MEDICAID ==
[2023-09-20 13:48] VITALS: BP 134/81; PULSE 108
[2023-09-20 15:22] LABS: APPEARANCE,URINE SLIGHTLY CLOUDY (CLEAR); BILIRUBIN,URINE NEGATIVE (NEGATIVE); COLOR,URINE YELLOW (YELLOW); GLUCOSE,URINE NEGATIVE (NEGATIVE); KETONES,URINE NEGATIVE (NEGATIVE); LEUKOCYTE ESTERASE,URINE LARGE (NEGATIVE); NITRITE,URINE NEGATIVE (NEGATIVE); OCCULT BLOOD,URINE TRACE-INTACT (NEGATIVE); PROTEIN,URINE NEGATIVE (NEGATIVE); UROBILINOGEN,URINE 0.2 EU/dL (0.2-1.0)
[2023-09-20 15:32] LABS: AMORPHOUS SEDIMENT,URINE NOT SEEN; BACTERIA,URINE MANY; EPITHELIAL CELLS,URINE FEW; MUCUS,URINE FEW; RBC,URINE 0-5 (0-5); WBC,URINE 30-40 (0-5)
== END 2023-09-20 16:30 | disposition home or self-care (01) ==
LOC: JP.ED 13:09
DX: N76.0 Acute vaginitis (principal); Z88.0 Allergy status to penicillin; Z79.82 Long term (current) use of aspirin; Z79.899 Other long term (current) drug therapy
CPT/HCPCS: 81001; 87086; 87210; 99283

== ENCOUNTER 2023-11-11 07:13 | Emergency (ER) | payer MEDICAID ==
[2023-11-11 07:30] VITALS: BP 124/79; PULSE 90
[2023-11-11 08:08] LABS: BASOPHILS ABSOLUTE AUTO 0.04 K/uL (0.00-0.10); BASOPHILS PERCENT AUTO 0.4 % (0.1-1.3); HEMATOCRIT 29.6 % (34.3-46.0); IMMATURE GRAN ABSOLUTE AUTO 0.07 K/uL (0.00-0.23); IMMATURE GRAN PERCENT AUTO 0.7 % (0.0-0.7); LYMPHOCYTES ABSOLUTE AUTO 2.18 K/uL (0.8-3.3); LYMPHOCYTES PERCENT AUTO 20.8 % (11.4-47.7); MEAN CORPUSCULAR HEMOGLOBIN 27.6 pg (31.6-35.5); MEAN CORPUSCULAR HGB CONC 33.8 g/dL (31.6-35.5); MEAN CORPUSCULAR VOLUME 81.8 fL (81.4-99.0); MONOCYTES ABSOLUTE AUTO 0.82 K/uL (0.20-0.90); MONOCYTES PERCENT AUTO 7.8 % (3.3-12.6); NEUTROPHILS ABSOLUTE AUTO 7.29 K/uL (1.0-7.6); NEUTROPHILS PERCENT AUTO 69.3 % (40.0-78.1); PLATELET COUNT,PLT 292 K/uL (130-375); RED BLOOD CELL COUNT 3.62 M/uL (3.77-5.24); WHITE BLOOD CELL COUNT,WBC 10.5 K/uL (3.2-11.0)
== END 2023-11-11 08:33 | disposition home or self-care (01) ==
LOC: JP.ED 07:13
DX: O21.8 Other vomiting complicating pregnancy (principal); K92.0 Hematemesis; Z79.82 Long term (current) use of aspirin; Z79.899 Other long term (current) drug therapy; Z88.0 Allergy status to penicillin; Z3A.35 35 weeks gestation of pregnancy
CPT/HCPCS: 36415; 85025; 99284

== ENCOUNTER 2024-02-23 18:26 | Emergency (ER) | payer MEDICAID ==
[2024-02-23 18:54] VITALS: BP 145/82; PULSE 69
[2024-02-23 19:32] LABS: BASOPHILS ABSOLUTE AUTO 0.05 K/uL (0.00-0.10); BASOPHILS PERCENT AUTO 0.5 % (0.1-1.3); EOSINOPHILS ABSOLUTE AUTO 0.05 K/uL (0.00-0.40); EOSINOPHILS PERCENT AUTO 0.5 % (0.0-5.4); HEMATOCRIT 34.3 % (34.3-46.0); HEMOGLOBIN 11.8 g/dL (11.2-15.5); IMMATURE GRAN ABSOLUTE AUTO 0.04 K/uL (0.00-0.23); IMMATURE GRAN PERCENT AUTO 0.4 % (0.0-0.7); LYMPHOCYTES ABSOLUTE AUTO 1.66 K/uL (0.8-3.3); MEAN CORPUSCULAR HEMOGLOBIN 28.1 pg (31.6-35.5); MEAN CORPUSCULAR HGB CONC 34.4 g/dL (31.6-35.5); MEAN CORPUSCULAR VOLUME 81.7 fL (81.4-99.0); MONOCYTES ABSOLUTE AUTO 0.52 K/uL (0.20-0.90); MONOCYTES PERCENT AUTO 4.7 % (3.3-12.6); NEUTROPHILS ABSOLUTE AUTO 8.76 K/uL (1.0-7.6); NEUTROPHILS PERCENT AUTO 78.9 % (40.0-78.1); PLATELET COUNT,PLT 346 K/uL (130-375); WHITE BLOOD CELL COUNT,WBC 11.1 K/uL (3.2-11.0)
[2024-02-23 19:53] LABS: A/G RATIO 0.9 (1.2-2.2); ALANINE AMINOTRANSFERASE,ALT 34 U/L (12-78); ALBUMIN 3.7 g/dL (3.4-5.0); ALKALINE PHOSPHATASE 82 U/L (46-116); ASPARTATE AMNIOTRANSFERASE,AST 21 U/L (15-37); BILIRUBIN TOTAL 0.3 mg/dL (0.2-1.0); BLOOD UREA NITROGEN,BUN 11 mg/dL (7-18); C-REACTIVE PROTEIN 0.58 mg/dL (<0.50); CALCIUM 9.1 mg/dL (8.5-10.1); CARBON DIOXIDE,CO2 25 mmol/L (21-32); CHLORIDE,CL 104 mmol/L (100-108); CREATININE 0.8 mg/dL (0.6-1.0); EST CRCL DRUG DOSING (CG) 96.73 mL/min; ESTIMATED GFR 105 mL/min (>60); GLUCOSE RANDOM 101 mg/dL (74-106); POTASSIUM,K 4.2 mmol/L (3.6-5.2); PROTEIN TOTAL,TP 7.7 g/dL (6.4-8.2); SODIUM,NA 139 mmol/L (140-148)
[2024-02-23 19:55] LABS: ANION GAP 14.2 mmol/L (5.0-14.0)
[2024-02-23 20:00] LABS: LACTIC ACID 0.8 mmol/L (0.4-2.0)
[2024-02-23] MEDS: Sodium Chloride 0.9% 1,000 ML IV SCH (21:09)
[2024-02-23] MEDS: Ondansetron 4 MG/2 ML SDV IVPUSH ONE (21:09)
== END 2024-02-23 22:16 | disposition home or self-care (01) ==
LOC: JP.ED 18:26
DX: K52.9 Noninfective gastroenteritis and colitis, unspecified (principal); F17.210 Nicotine dependence, cigarettes, uncomplicated; K21.9 Gastro-esophageal reflux disease without esophagitis; Z79.82 Long term (current) use of aspirin; Z88.0 Allergy status to penicillin; Z79.899 Other long term (current) drug therapy
CPT/HCPCS: 36415; 80053; 83605; 83690; 85025; 86140; 96361; 96374; 99283; 99284-25; J2405; J7030